=== PATIENT | male | born 1990 | race Two or more races ===

== ENCOUNTER 2024-10-04 07:27 | Emergency (ER) | payer OTHER ==
[~2024-10-04] VITALS: Ht 170.2 cm; Wt 71.2 kg
[2024-10-04 07:48] VITALS: BP 149/92; PULSE 92; RESP 18; TEMP 98.1; O2SAT 96
--- NOTE | 2024-10-04 08:11 | ED.PDOC ---
Eye-HPI HPI Comments 34 year old male presents to the ED for the c/c of a Burning Sensation in his Throat. Pt states that he has been experiencing a Burning Sensation in his throat w/ associated SOB for the past 2x days. Pt also notes that he has a foreign body sensation in his right heel. No trauma noted. Does not recall stepping on anything. No aggravating factors. Burning sensation is described as mild, rates the pain 1/10. Pt denies any pain, cough, or radiation at this point in time. Denies chest pain shortness of breath Denies inability to move neck, history of meningitis Denies difficulty swallowing nor persistent salivation Denies fevers chills night sweats Denies persistent cough, runny nose, congestion Denies loss of appetite, unintentional weight loss over the past 3 months Denies voice changes Denies history of asthma or seasonal allergies Chief Complaint: Sore Throat Time Seen by MD: 08:04 Primary Care Provider: MY Reviewed Notes: Nurses Notes, Medications, Allergies Allergies: Coded Allergies: Ibuprofen (Verified Allergy, Unknown, 10/04/24) Information Source: Patient Mode of Arrival: Ambulatory Timing: Days Duration: Since onset, Days Prehospital treatment: None Quality: Clear Lids: Normal Conjunctiva: Normal Cornea: Normal Pupils: Normal EOM: Normal Fundus: Normal Slit lamp exam: Normal Anterior chamber: Normal Mouth: Normal ENT Ear Exam: Normal Nose: Normal Sinuses: Normal Oropharynx: Normal Onset: Spontaneous Throat Exposed to: None History of: None Last Tetanus: Unknown Associated signs and symptoms: Sore Throat Past Medical History PAST MEDICAL HISTORY: Denies Surgical History: Denies all surgeries Family History Family History: Reviewed,noncontributory to illness, No family hx of Cancer, No family hx of DM, No family hx of Heart elicia, No family hx of HTN, No family hx ofKidney elicia, No family hx of Liver elicia, No family hx of Lung elicia, No family hx of Stroke Social History Smoker: Non-Smoker Alcohol: Denies ETOH Use Drugs: Denies Drug Use Lives In: Home Constitutional: denies: chills, diaphoresis, fatigue, fever, malaise, sweats, weakness, others EENTM: reports: others (throat burning); denies: blurred vision, double vision, ear bleeding, ear discharge, ear drainage, ear pain, ear ringing, eye pain, eye redness, hearing loss, mouth pain, mouth swelling, nasal discharge, nose bleeding, nose congestion, nose pain, photophobia, tearing, throat pain, throat swelling, voice changes Respiratory: reports: SOB at rest, shortness of breath; denies: cough, hemoptysis, orthopnea, SOB with excertion, stridor, wheezing, others Cardiovascular: denies: chest pain, dizzy spells, diaphoresis, Dyspnea on exertion, edema, irregular heart beat, left arm pain, lightheadedness, palpitations, PND, syncope, others Gastrointestinal: denies: abdomen distended, abdominal pain, blood streaked bowels, constipated, diarrhea, dysphagia, difficulty swallowing, hematemesis, melena, nausea, poor appetite, poor fluid intake, rectal bleeding, rectal pain, vomiting, others Genitourinary: denies: burning, dysuria, flank pain, frequency, hematuria, incontinence, penile discharge, penile sore, pain, testicle pain, testicle swelling, urgency, others Neurological: denies: dizziness, fainting, headache, left sided numbness, left sided weakness, numbness, paresthesia, pre-existing deficit, right sided numbness, right sided weakness, seizure, speech problems, tingling, tremors, weakness, others Musculoskeletal: denies: back pain, gout, joint pain, joint swelling, muscle pain, muscle stiffness, neck pain, others Integumetry: denies: bruises, change in color, change in hair/nails, dryness, laceration, lesions, lumps, rash, wounds, others Allergic/Immunocompromised: denies: Difficulty Healing, Frequent Infections, Hives, Itching, others Hematologic/Lymphatic: denies: anemia, blood clots, easy bleeding, easy bruising, swollen glands, others Endocrine: denies: excessive hunger, excessive sweating, excessive thirst, excessive urination, flushing, intolerance to cold, intolerance to heat, unexplained weight gain, unexplained weight loss, others Psychiatric: denies: anxiety, bipolar disorder, depression, hopeless, panic disorder, schizophrenia, sleepless, suicidal, others All Other Systems: Reviewed and Negative Physical Exam General Appearance: Normal, Obese HEENT: Head (Normocephalic atraumatic), Normal ENT Inspection, Pharynx Normal, TMs Normal, Other (Uvula Midline, MMM) Neck: Full Range of Motion, Non-Tender, Normal, Normal Inspection (no palpable masses) Respiratory: Chest Non-Tender, Lungs Clear, No Respiratory Distress Cardiovascular: No Edema, No JVD, Normal Peripheral Pulses Breast Exam: Deferred Gastrointestinal: Non Tender, No Pulsatile Mass, Soft Genitalia: Deferred Pelvic: Deferred Rectal: Deferred Extremities: No calf tenderness, Normal range of motion, Non-tender Musculoskeletal : Apperance: Normal Neurologic: Alert, No Motor Deficits, Normal Mood Cerebellar Function: Normal Reflexes: Normal Skin: Dry, Normal Color, Warm Lymphatic: No Adenopathy Was a procedure done? Was a procedure done?: No EENT DIFF Eye: Other Sore Throat: Epiglottitis, Pharyngitis, Viral Pharyngitis X-Ray, Labs, Meds, VS Vital Signs Date Time Temp Pulse Resp B/P (MAP) Pulse Ox O2 Delivery O2 Flow Rate FiO2 10/04/24 07:48 92 18 96 Room Air 10/04/24 07:48 98.1 92 18 149/92 (111) 96 98.1 10/04/24 07:35 98.1 92 18 149/92 (111) 96 98.1 Lab Test 10/04/24 08:40 10/04/24 08:13 Range/Units Group A Streptococcus Rapid Negative White Blood Count 5.6 4.4-10.8 10^3/uL Red Blood Count 5.20 4.5-5.90 10^6/uL Hemoglobin 15.6 13.5-17.5 g/dL Hematocrit 46.1 41.0-53.0 % Mean Corpuscular Volume 88.6 80.0-100.0 fL Mean Corpuscular Hemoglobin 29.9 28.0-32.0 pg Mean Corpuscular Hemoglobin Concent 33.8 32.0-36.0 g/dL Red Cell Distribution Width 13.0 11.8-14.3 % Platelet Count 309 140-450 10^3/uL Mean Platelet Volume 7.8 6.9-10.8 fL Neutrophils (%) (Auto) 54.9 37.0-80.0 % Lymphocytes (%) (Auto) 36.7 10.0-50.0 % Monocytes (%) (Auto) 7.3 0.0-12.0 % Eosinophils (%) (Auto) 0.8 0.0-7.0 % Basophils (%) (Auto) 0.3 0.0-2.0 % Neutrophils # (Auto) 3.1 1.6-8.6 10 ^3/uL Lymphocytes # (Auto) 2.1 0.4-5.4 10 ^3/uL Monocytes # (Auto) 0.4 0-1.3 10 ^3/uL Eosinophils # (Auto) 0 0-0.8 10 ^3/uL Basophils # (Auto) 0 0-0.2 10 ^3/uL Nucleated Red Blood Cells 0.0 % Sodium Level 141 136-145 mmol/L Potassium Level 4.4 3.5-5.1 mmol/L Chloride Level 106 98-107 mmol/L Carbon Dioxide Level 27 20-31 mmol/L Anion Gap 8 5-15 Blood Urea Nitrogen 13 9-23 mg/dL Creatinine 0.85 0.700-1.30 mg/dL Glomerular Filtration Rate Calc 115 >90 mL/min BUN/Creatinine Ratio 15.3 10.0-20.0 Serum Glucose 102 74-106 mg/dL Calcium Level 10.3 8.7-10.4 mg/dL X-Ray, Labs, Meds, VS Comment 34 year old male presents to the ED for the c/c of a Burning Sensation in his Throat. Patient arrives alert and oriented, ABC's intact, afebrile, vital signs stable, saturating well in room air Patient presents with a chief complaint of a sore throat. After review of systems and physical examination there are no no concerns or red flags for peritonsillar abscess, abscess formation, epiglottitis, retropharyngeal abscess formation or airway obstruction. No concerns for peritonsillar abscess as patient denies severe sore throat, muffled or hot potato voice, and difficulty handling secretions. No concerns for abscess formation as the soft palate is symmetrical and there is no displacement of the uvula and the uvula is also midline. No concerns for epiglottitis as patient denies severe sore throat, dysphagia, muffled voice, patient is not drooling nor is patient in tripod position. No signs of retropharyngeal abscess formation as patient has no fevers, stiff neck, drooling no stridor No signs of airway obstruction as patient denies sensation of foreign body vital signs stable on room air. Labs were ordered. CBC was ordered to exclude anemia, blood loss, or infection. BMP was ordered to exclude electrolyte abnormalities, renal failure, d ehydration, hyperglycemia Strep was ordered Labs in the ED showed reassuring Patient is stable for discharge at this time. External notes reviewed. Test results and diagnostic imaging interpreted. All diagnostic findings, discharge care, education and instructions provided Follow-up with PCP in 2 to 3 days Patient verbalized understanding and agreed to treatment plan Vital signs stable, afebrile, no acute distress noted Patient ambulatory with strong steady gait Advised to return precautions for any new or worsening symptoms, return to ER immediately for re-evaluation Patient is aware that the purpose of this visit was for an acute medical emergency requiring emergent stabilization. Chronic conditions, including malignancies have not been ruled out. Patient is instructed to follow up with PCP as directed and discharge instructions for continued care and workup. If unable to arrange follow-up, patient is to return to the emergency department for reassessment. Patient (parent or legal guardian if applicable) was given verbal and written discharge instructions and acknowledges understanding. Additional MDM Review of External, Non-ED records: External records reviewed. Discussion with independent historian (EMS, family) history obtained from the patient/parents (if applicable) at bedside Chronic conditions affecting care: None Social determinants of health affecting care: None Consideration of admission (observation or admission): I considered escalation of care to admission for this patient, however given the reassuring workup, the patient is safe for outpatient management. Time of 1ST Reevaluation: 08:35 Reevaluation 1ST: Unchanged Patient Education/Counseling: Diagnosis, Treatment Family Education/Counseling: No Family Present Departure 1 Departure Time of Disposition: 09:17 Impression: Primary Impression: Throat pain Disposition: 01 HOME / SELF CARE / HOMELESS Condition: Stable e-Prescriptions Cetirizine Hcl (Cetirizine Hcl) 5 Mg Tab 10 MG PO DAILY for 30 Days, #60 TAB 0 Refills Prov: LILIAN HAWKINS NP 10/04/24 Discharged With: Self Critical Care Note Critical Care Time?: No Stability Stability form required: No Heart Score Heart Score: Heart Score Response (Comments) Value History N/A 0 EKG N/A 0 Age N/A 0 Risk Factors N/A 0 Troponin N/A 0 Total 0 I personally scribed for LILIAN HAWKINS NP ([email or web address]) on 10/04/24 at 08:11. Electronically submitted by Tony Tovar ([email or web address]). LILIAN HAWKINS NP Oct 04, 2024 08:11
[2024-10-04 08:33] LABS: Basophils # (auto) 0 10 ^3/uL (0-0.2); Basophils % (auto) 0.3 % (0.0-2.0); Eosinophils # (auto) 0 10 ^3/uL (0-0.8); Eosinophils % (auto) 0.8 % (0.0-7.0); Hematocrit 46.1 % (41.0-53.0); Hemoglobin 15.6 g/dL (13.5-17.5); Lymphocytes # (auto) 2.1 10 ^3/uL (0.4-5.4); Lymphocytes % (auto) 36.7 % (10.0-50.0); Mean Corpuscular Hemoglobin 29.9 pg (28.0-32.0); Mean Corpuscular Hgb Conc. 33.8 g/dL (32.0-36.0); Mean Corpuscular Volume 88.6 fL (80.0-100.0); Monocytes # (auto) 0.4 10 ^3/uL (0-1.3); Monocytes % (auto) 7.3 % (0.0-12.0); Neutrophils # (auto) 3.1 10 ^3/uL (1.6-8.6); Neutrophils % (auto) 54.9 % (37.0-80.0); Platelet Count (auto) 309 10^3/uL (140-450); White Blood Cell 5.6 10^3/uL (4.4-10.8)
[2024-10-04 08:43] LABS: Chloride 106 mmol/L (98-107); Potassium 4.4 mmol/L (3.5-5.1); Sodium 141 mmol/L (136-145)
[2024-10-04 08:44] LABS: Anion Gap 8 (5-15); Carbon Dioxide 27 mmol/L (20-31)
[2024-10-04 08:45] LABS: Calcium 10.3 mg/dL (8.7-10.4)
[2024-10-04 08:50] LABS: BUN/Creatinine Ratio 15.3 (10.0-20.0); Blood Urea Nitrogen 13 mg/dL (9-23); Glucose 102 mg/dL (74-106)
[2024-10-04 08:54] LABS: Rapid Strep A Screen-Throat Negative
[2024-10-04] MEDS ORDERED: CETI5TAB6 PO (09:19)
== END 2024-10-04 09:29 | disposition home or self-care (01) ==
LOC: ER 07:27
DX: R07.0 Pain in throat (principal); Z88.6 Allergy status to analgesic agent
CPT/HCPCS: 36415; 80048; 85025; 87070; 87880

== ENCOUNTER 2024-11-14 10:44 | Emergency (ER) | payer OTHER ==
[~2024-11-14] VITALS: Ht 170.2 cm; Wt 70.2 kg
[~2024-11-14 10:44] MED LIST: CETI5TAB6 PO
--- NOTE | 2024-11-14 11:47 | ED.PDOC ---
HPI Comments 34y M who presents to the ED for chief complaint of palpitations. Pt states he was at [facility] 2x weeks prior for shortness of breath and discharged. Pt states since, he has continued to be short of breath but states today, he started to have palpitations and states earlier this AM, he had pain radiating to the L arm and extremity. Pt states the pain was like a jolt and states they last for a few seconds, occurring intermittently this AM and pt got concerned and went to [facility] urgent care and was referred to the ED for further evaluation. Pt in the ED, states these palpitations have occurred intermittently over the past 2 weeks, usually occur after he drinks liquids that are very sweet, but states he became concerned due to the increased nature of the pain and came for further evaluation. Pt states he did have 1x episode of palpitations in the past and s tates it was associated with a syncopal episode and states it was due to dehydration. Pt states he was referred to pipe buffer and had full work with associated Holter monitor and states work up came back negative. Pt states he otherwise has not seen a PCP or any provider since. Pt otherwise has noted stable vitals with heart rate of 92, BP 140/87, RR 16 and temp of 98.5F. Pt oth erwise denies any other symptoms at this time. Chief Complaint: Palpitations Time Seen by MD: 11:30 Primary Care Provider: MY Reviewed Notes: Medications, Allergies Allergies: Coded Allergies: Ibuprofen (Verified Allergy, Unknown, 10/04/24) Home Meds Active Scripts Cetirizine Hcl (Cetirizine Hcl) 5 Mg Tab, 10 MG PO DAILY for 30 Days, #60 TAB 0 Refills Prov:LILIAN HAWKINS [employer] 10/04/24 Information Source: Patient Mode of Arrival: Ambulatory Past Medical History PAST MEDICAL HISTORY: Denies Surgical History: Denies all surgeries Family History Family History: Reviewed,noncontributory to illness, No family hx of Cancer, No family hx of DM, No family hx of Heart elicia, No family hx of HTN, No family hx ofKidney elicia, No family hx of Liver elicia, No family hx of Lung elicia, No family hx of Stroke Social History Smoker: Non-Smoker Alcohol: Denies ETOH Use Drugs: Denies Drug Use Lives In: Home Constitutional: denies: chills, diaphoresis, fatigue, fever, malaise, sweats, weakness, others EENTM: denies: blurred vision, double vision, ear bleeding, ear discharge, ear drainage, ear pain, ear ringing, eye pain, eye redness, hearing loss, mouth pain, mouth swelling, nasal discharge, nose bleeding, nose congestion, nose pain, photophobia, tearing, throat pain, throat swelling, voice changes, others Respiratory: denies: cough, hemoptysis, orthopnea, SOB at rest, shortness of breath, SOB with excertion, stridor, wheezing, others Cardiovascular: reports: palpitations; denies: chest pain, dizzy spells, diaphoresis, Dyspnea on exertion, edema, irregular heart beat, left arm pain, lightheadedness, PND, syncope, others Gastrointestinal: denies: abdomen distended, abdominal pain, blood streaked bowels, constipated, diarrhea, dysphagia, difficulty swallowing, hematemesis, melena, nausea, poor appetite, poor fluid intake, rectal bleeding, rectal pain, vomiting, others Genitourinary: denies: burning, dysuria, flank pain, frequency, hematuria, incontinence, penile discharge, penile sore, pain, testicle pain, testicle swelling, urgency, others Neurological: denies: dizziness, fainting, headache, left sided numbness, left sided weakness, numbness, paresthesia, pre-existing deficit, right sided numbness, right sided weakness, seizure, speech problems, tingling, tremors, weakness, others Musculoskeletal: denies: back pain, gout, joint pain, joint swelling, muscle pain, muscle stiffness, neck pain, others Integumetry: denies: bruises, change in color, change in hair/nails, dryness, laceration, lesions, lumps, rash, wounds, others Allergic/Immunocompromised: denies: Difficulty Healing, Frequent Infections, Hives, Itching, others Hematologic/Lymphatic: denies: anemia, blood clots, easy bleeding, easy bruising, swollen glands, others Endocrine: denies: excessive hunger, excessive sweating, excessive thirst, excessive urination, flushing, intolerance to cold, intolerance to heat, unexplained weight gain, unexplained weight loss, others Psychiatric: denies: anxiety, bipolar disorder, depression, hopeless, panic disorder, schizophrenia, sleepless, suicidal, others All Other Systems: Reviewed and Negative Physical Exam General Appearance: No Apparent Distress HEENT: Other (Pupils and face symmetric. Moist mucous membranes.) Neck: Full Range of Motion, Normal Inspection Respiratory: Lungs Clear, No Accessory Muscle Use, No Respiratory Distress, Normal Breath Sounds Cardiovascular: No Edema, No JVD, Regular Rate/Rhythm Breast Exam: Deferred Gastrointestinal: Non Tender, Soft Genitalia: Deferred Pelvic: Deferred Rectal: Deferred Extremities: Normal inspection, Normal range of motion, Non-tender, No pedal edema Neurologic: Alert (Oriented x4), Normal Affect, Normal Mood, Other (Ambulatory) Cerebellar Function: NOT DONE Reflexes: NOT DONE Skin: Dry, Normal Color, Warm Lymphatic: NOT DONE EKG EKG : Comments Sinus rhythm, rate 87, normal intervals, normal axis, normal QRS, no ST/T change. Was a procedure done? Was a procedure done?: No CP Differential Dx Differential Diagnosis: A-fib, A-Flutter, Angina, Anxiety / Panic Attack, Electrolyte Disorder, Heart Failure, [place], PVC's Differential Diagnosis: HTN Essential Differential Diagnosis: Angina, Chest Wall Pain, Costochondritis, Esophageal reflux/spasm, Gastritis X-Ray, Labs, Meds, VS Vital Signs Date Time Temp Pulse Resp B/P (MAP) Pulse Ox O2 Delivery O2 Flow Rate FiO2 11/14/24 11:24 94 18 95 Room Air 11/14/24 11:24 94 18 130/88 (102) 95 11/14/24 11:14 87 11/14/24 11:05 98.5 92 16 140/87 (104) 97 98.5 Lab Test 11/14/24 12:37 11/14/24 11:32 11/14/24 11:16 Range/Units Troponin I High Sensitivity < 3 L < 3 L </=54 ng/L White Blood Count 7.7 4.4-10.8 10^3/uL Red Blood Count 5.14 4.5-5.90 10^6/uL Hemoglobin 15.6 13.5-17.5 g/dL Hematocrit 45.9 41.0-53.0 % Mean Corpuscular Volume 89.4 80.0-100.0 fL Mean Corpuscular Hemoglobin 30.4 28.0-32.0 pg Mean Corpuscular Hemoglobin Concent 34.0 32.0-36.0 g/dL Red Cell Distribution Width 12.7 11.8-14.3 % Platelet Count 334 140-450 10^3/uL Mean Platelet Volume 7.8 6.9-10.8 fL Neutrophils (%) (Auto) 72.0 37.0-80.0 % Lymphocytes (%) (Auto) 21.8 10.0-50.0 % Monocytes (%) (Auto) 5.7 0.0-12.0 % Eosinophils (%) (Auto) 0.2 0.0-7.0 % Basophils (%) (Auto) 0.3 0.0-2.0 % Neutrophils # (Auto) 5.6 1.6-8.6 10 ^3/uL Lymphocytes # (Auto) 1.7 0.4-5.4 10 ^3/uL Monocytes # (Auto) 0.4 0-1.3 10 ^3/uL Eosinophils # (Auto) 0 0-0.8 10 ^3/uL Basophils # (Auto) 0 0-0.2 10 ^3/uL Nucleated Red Blood Cells 0.1 % Sodium Level 140 136-145 mmol/L Potassium Level 3.9 3.5-5.1 mmol/L Chloride Level 104 98-107 mmol/L Carbon Dioxide Level 26 20-31 mmol/L Anion Gap 10 5-15 Blood Urea Nitrogen 13 9-23 mg/dL Creatinine 0.84 0.700-1.30 mg/dL Glomerular Filtration Rate Calc 116 >90 mL/min BUN/Creatinine Ratio 15.5 10.0-20.0 Serum Glucose 96 74-106 mg/dL Calcium Level 10.4 8.7-10.4 mg/dL B-Type Natriuretic Peptide 11.44 0-100 pg/mL Urine Color Light-yellow Yellow Urine Clarity Clear Clear Urine pH 7.5 5.0-9.0 Urine Specific [place] 1.019 1.001-1.035 Urine Protein Negative Negative Urine Ketones Negative Negative Urine Blood Negative Negative /uL Urine Nitrite Negative Negative Urine Bilirubin Negative Negative Urine Urobilinogen Normal Negative mg/dL Urine Leukocyte Esterase Negative Negative /uL Urine RBC 1 0 - 3 /hpf Urine Microscopic WBC 0-3 /HPF Urine Squamous Epithelial Cells None seen <5 /hpf Urine Bacteria None seen None Seen /hpf Urine Mucus Few None Seen Urine Glucose Normal Normal mg/dL Urine Opiates Screen Neg NEGATIVE Urine Fentanyl Screen Neg NEGATIVE Urine Barbiturates Screen Neg NEGATIVE Urine Phencyclidine Screen Neg NEGATIVE Urine Amphetamines Screen Neg NEGATIVE Urine Benzodiazepines Screen Neg NEGATIVE Urine Cocaine Screen Neg NEGATIVE Urine Cannabinoids Screen Neg NEGATIVE X-Ray, Labs, Meds, VS Comment 44-year-old male with no significant past medical history referred by urgent care for evaluation of palpitations, shortness of breath and left upper extremity pain intermittently for past several weeks no symptoms currently. Vitals unremarkable Exam unremarkable Rhythm strip independently interpreted by me: Sinus rhythm, rate 7, no ectopy. Chest x-ray unremarkable CBC, basic metabolic panel, BNP, serial troponins, UA and urine drug screen unremarkable for any abnormality of acute significance No acute treatment indicated in the ED Hospitalization was considered, however patient was asymptomatic in the ED, cardiac workup is unremarkable, and he does state that he had a cardiology evaluation 8 years ago including Holter monitoring, which was unremarkable. Patient does appear stable at this point to be discharged with close follow-up with his primary physician for referral back to Cardiology for re-evaluation. Alternatively, patient may follow-up with Dr. Frederick. Time of 1ST Reevaluation: 14:15 Reevaluation 1ST: Unchanged Patient Education/Counseling: Diagnosis, Treatment Family Education/Counseling: No Family Present SEPSIS Sepsis Screen Date sepsis recognized/suspect: Nov 14, 2024 Time Sepsis recognized/suspect: 1107 Recent Procedure: No On Antibiotic Therapy: No Respiratory Rate >20: No Heart Rate >90: Yes Temp<36 C (96.8 F) or >38.3 C: No SBP <90 or MAP <65 mmHG: No New Acute Mental Status Change: No Is the patient on CPAP, BIPAP,: No SEPSIS EXCLUSION NOTE: Sepsis Exclusion Note: Patient presents with SIRS criteria, but the SIRS response is attributed to [anxiety ], not a suspected infection. Sepsis bundle is not initiated at this time, due to this reason. Further management will focus on the treatment of the above condition (s). Physician Orders Electrocardigram (11/14/24 11:18) Troponin-I Hs (11/14/24 14:23) Vital Signs Date Time Temp Pulse Resp B/P (MAP) Pulse Ox O2 Delivery O2 Flow Rate FiO2 11/14/24 11:24 94 18 95 Room Air 11/14/24 11:24 94 18 130/88 (102) 95 11/14/24 11:14 87 11/14/24 11:05 98.5 92 16 140/87 (104) 97 98.5 Laboratory Tests Test 11/14/24 11:32 White Blood Count 7.7 10^3/uL (4.4-10.8) Departure 1 Departure Time of Disposition: 14:15 Impression: Primary Impression: Palpitations Disposition: HOME / SELF CARE / HOMELESS Condition: Stable Referrals: STEPHANIE FREDERICK Sr., MD Additional Instructions: Your blood tests, including screening test for heart attack and heart failure, were unremarkable. Your chest x-ray was normal. Your EKG was normal. There was no medication necessary at this time. Follow-up with your primary doctor in 1-2 days for referral to a pipe buffer for further evaluation of your palpitations. Alternatively, follow-up directly with Dr. Frederick. Return to ER for persistent or worsening symptoms. Discharged With: Self Critical Care Note Critical Care Time?: No Stability Stability form required: No Heart Score Heart Score: Heart Score Response (Comments) Value History Slightly Suspicious 0 EKG Normal 0 Age <45 0 Risk Factors No known risk factors 0 Troponin Normal limit 0 Total 0 I personally scribed for MAREN BRUNER MD ([email or web address]) on 11/14/24 at 11:47. Electronically submitted by Brayden Vu ([email or web address]). MARNE BRUNER MD Nov 14, 2024 11:47
[2024-11-14 11:48] LABS: Urine Protein, UAD Negative (Negative)
[2024-11-14 12:01] LABS: Hematocrit 45.9 % (41.0-53.0); Hemoglobin 15.6 g/dL (13.5-17.5); Mean Corpuscular Hemoglobin 30.4 pg (28.0-32.0); Mean Corpuscular Volume 89.4 fL (80.0-100.0); Nucleated Red Blood Cells % 0.1 %
[2024-11-14 12:07] LABS: Chloride 104 mmol/L (98-107); Potassium 3.9 mmol/L (3.5-5.1); Sodium 140 mmol/L (136-145)
[2024-11-14 12:08] LABS: Anion Gap 10 (5-15); Carbon Dioxide 26 mmol/L (20-31)
[2024-11-14 12:10] LABS: Calcium 10.4 mg/dL (8.7-10.4)
[2024-11-14 12:13] LABS: BUN/Creatinine Ratio 15.5 (10.0-20.0); Blood Urea Nitrogen 13 mg/dL (9-23); Glucose 96 mg/dL (74-106)
[2024-11-14 12:15] LABS: Amphetamine Screen, Urine Neg (NEGATIVE); Barbiturate Scree,Urine Neg (NEGATIVE); Benzodiazephine Screen, Urine Neg (NEGATIVE); Cannabinoid Screen, Urine Neg (NEGATIVE); Cocaine Screen, Urine Neg (NEGATIVE); Opiate Scree,Urine Neg (NEGATIVE); Phencyclidine Screen, Urine Neg (NEGATIVE)
[2024-11-14 14:02] VITALS: BP 131/93; PULSE 102; RESP 20; TEMP 99.5; O2SAT 94
--- NOTE | 2024-11-14 14:35 | DVH ---
CHEST RADIOGRAPH Indication: palpitations Technique: Single frontal view of the chest was obtained Comparison: None FINDINGS: Lines and Tubes: None Lungs: No focal consolidation. Pleura: No effusion. No pneumothorax. Cardiomediastinal contours: Unremarkable Bones: No acute osseous abnormality. IMPRESSION: 1. No acute cardiopulmonary disease.
--- NOTE | 2024-11-15 06:35 | ECG ---
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
== END 2024-11-14 14:35 | disposition home or self-care (01) ==
LOC: ER 10:44
DX: R00.2 Palpitations (principal); Z88.6 Allergy status to analgesic agent; Z79.899 Other long term (current) drug therapy
CPT/HCPCS: 36415; 71045; 80048; 80307; 81001; 83880; 84484; 85025; 93005

== ENCOUNTER 2025-03-31 09:49 | Emergency (ER) | payer OTHER ==
[~2025-03-31] VITALS: Ht 175.3 cm; Wt 86.0 kg
--- NOTE | 2025-03-31 10:00 | ECG ---
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
[2025-03-31 10:22] LABS: Hematocrit 46.7 % (41.0-53.0); Hemoglobin 15.6 g/dL (13.5-17.5); Mean Corpuscular Hemoglobin 29.9 pg (28.0-32.0); Mean Corpuscular Volume 89.5 fL (80.0-100.0); Nucleated Red Blood Cells % 0.1 %
[2025-03-31 10:35] LABS: Chloride 104 mmol/L (98-107); Potassium 4.8 mmol/L (3.5-5.1); Sodium 142 mmol/L (136-145)
[2025-03-31 10:36] LABS: Anion Gap 9 (5-15); Calcium 9.8 mg/dL (8.7-10.4); Carbon Dioxide 29 mmol/L (20-31)
--- NOTE | 2025-03-31 10:38 | ED.PDOC ---
HPI (NEURO) HPI Comments This is a 35 year-old male who presents to the ED via EMS for syncopal episode X1 hour ago. Patient reports some lightheadedness after the episode occured. Patient reports a Hx of syncope, with his last syncopal episode about 7-8 years ago. Patient was seen by a plastic machine operator in the past, no abnormalities identified, HR was normal, patient was told he was dehydrated. Patient has no further complaints at this time and denies symptoms of head trauma, headache, N/V, tremors, or fever. Chief Complaint: Syncope Time Seen by MD: 10:30 Primary Care Provider: MY Reviewed Notes: Nurses Notes, Electronic Organ Technician Notes, Medications, Allergies Information Source: Patient, Emergency Med Personnel Mode of Arrival: EMS Severity: Moderate Headache Severity: None Timing: Minutes Duration: Minutes Prehospital treatment: None Onset: At rest Circumstances: Spontaneous Symptoms: Syncope During: Awake After: Normal Mentation History of: None Modifying factors: Nothing Associated Signs and Symptoms: Other (lightheadedness) Past Medical History PAST MEDICAL HISTORY: Denies Surgical History: Denies all surgeries Family History Family History: Reviewed,noncontributory to illness, No family hx of Cancer, No family hx of DM, No family hx of Heart elicia, No family hx of HTN, No family hx ofKidney elicia, No family hx of Liver elicia, No family hx of Lung elicia, No family hx of Stroke Social History Smoker: Non-Smoker Alcohol: Denies ETOH Use Drugs: Denies Drug Use Lives In: Home Constitutional: denies: chills, diaphoresis, fatigue, fever, malaise, sweats, weakness, others EENTM: denies: blurred vision, double vision, ear bleeding, ear discharge, ear drainage, ear pain, ear ringing, eye pain, eye redness, hearing loss, mouth pain, mouth swelling, nasal discharge, nose bleeding, nose congestion, nose pain, photophobia, tearing, throat pain, throat swelling, voice changes, others Respiratory: denies: cough, hemoptysis, orthopnea, SOB at rest, shortness of breath, SOB with excertion, stridor, wheezing, others Cardiovascular: denies: chest pain, dizzy spells, diaphoresis, Dyspnea on exertion, edema, irregular heart beat, left arm pain, lightheadedness, palpitations, PND, syncope, others Gastrointestinal: denies: abdomen distended, abdominal pain, blood streaked bowels, constipated, diarrhea, dysphagia, difficulty swallowing, hematemesis, melena, nausea, poor appetite, poor fluid intake, rectal bleeding, rectal pain, vomiting, others Genitourinary: denies: burning, dysuria, flank pain, frequency, hematuria, incontinence, penile discharge, penile sore, pain, testicle pain, testicle swelling, urgency, others Neurological: reports: fainting, others (lightheaded); denies: dizziness, headache, left sided numbness, left sided weakness, numbness, paresthesia, pre- existing deficit, right sided numbness, right sided weakness, seizure, speech problems, tingling, tremors, weakness Musculoskeletal: denies: back pain, gout, joint pain, joint swelling, muscle pain, muscle stiffness, neck pain, others Integumetry: denies: bruises, change in color, change in hair/nails, dryness, laceration, lesions, lumps, rash, wounds, others Allergic/Immunocompromised: denies: Difficulty Healing, Frequent Infections, Hives, Itching, others Hematologic/Lymphatic: denies: anemia, blood clots, easy bleeding, easy br uising, swollen glands, others Endocrine: denies: excessive hunger, excessive sweating, excessive thirst, excessive urination, flushing, intolerance to cold, intolerance to heat, unexplained weight gain, unexplained weight loss, others Psychiatric: denies: anxiety, bipolar disorder, depression, hopeless, panic disorder, schizophrenia, sleepless, suicidal, others All Other Systems: Reviewed and Negative Physical Exam General Appearance: Moderate Distress HEENT: Normal ENT Inspection, Pharynx Normal, TMs Normal Neck: Full Range of Motion, Non-Tender, Normal, Normal Inspection Respiratory: Chest Non-Tender, Lungs Clear, No Accessory Muscle Use, No Respiratory Distress, Normal Breath Sounds Cardiovascular: No Edema, No JVD, No Murmur, No Gallop, Normal Peripheral Pulses, Regular Rate/Rhythm Breast Exam: Deferred Gastrointestinal: No Organomegaly, Non Tender, No Pulsatile Mass, Normal Bowel Sounds, Soft Genitalia: Deferred Pelvic: Deferred Rectal: Deferred Extremities: No calf tenderness, Normal capillary refill, Normal inspection, Normal range of motion, Non-tender, No pedal edema Musculoskeletal : Apperance: Normal Neurologic: Alert, safe and vault service mechanic II-XII nml as Tested, No Motor Deficits, Normal Affect, Normal Mood, No Sensory Deficits Cerebellar Function: Normal Reflexes: Normal Skin: Dry, Normal Color, Warm Peripheral Pulses: 3+ Radial (R), 3+ Radial (L) Lymphatic: No Adenopathy EKG EKG : Pulse Rate (adult): 86 [place]: Normal Cardiac Rhythm: NSR Block: None Hypertrophy: LAE ST: Normal Was a procedure done? Was a procedure done?: No Differential Diagnosis (SZ) Seizure: Psychogenic Seizure, Closed Head Injury, CVA/TIA General Weakness: Dehydration, Electrolyte imbalance, Hypoglycemia, Hypotension X-Ray, Labs, Meds, VS Vital Signs Date Time Temp Pulse Resp B/P (MAP) Pulse Ox O2 Delivery O2 Flow Rate FiO2 03/31/25 11:22 86 03/31/25 09:55 86 03/31/25 09:49 98.9 87 15 138/91 100 98.9 Lab Test 03/31/25 10:11 Range/Units White Blood Count 7.2 4.4-10.8 10^3/uL Red Blood Count 5.22 4.5-5.90 10^6/uL Hemoglobin 15.6 13.5-17.5 g/dL Hematocrit 46.7 41.0-53.0 % Mean Corpuscular Volume 89.5 80.0-100.0 fL Mean Corpuscular Hemoglobin 29.9 28.0-32.0 pg Mean Corpuscular Hemoglobin Concent 33.5 32.0-36.0 g/dL Red Cell Distribution Width 12.8 11.8-14.3 % Platelet Count 335 140-450 10^3/uL Mean Platelet Volume 7.5 6.9-10.8 fL Neutrophils (%) (Auto) 53.5 37.0-80.0 % Lymphocytes (%) (Auto) 39.6 10.0-50.0 % Monocytes (%) (Auto) 5.7 0.0-12.0 % Eosinophils (%) (Auto) 1.0 0.0-7.0 % Basophils (%) (Auto) 0.2 0.0-2.0 % Neutrophils # (Auto) 3.8 1.6-8.6 10 ^3/uL Lymphocytes # (Auto) 2.8 0.4-5.4 10 ^3/uL Monocytes # (Auto) 0.4 0-1.3 10 ^3/uL Eosinophils # (Auto) 0.1 0-0.8 10 ^3/uL Basophils # (Auto) 0 0-0.2 10 ^3/uL Nucleated Red Blood Cells 0.1 % Sodium Level 142 136-145 mmol/L Potassium Level 4.8 3.5-5.1 mmol/L Chloride Level 104 98-107 mmol/L Carbon Dioxide Level 29 20-31 mmol/L Anion Gap 9 5-15 Blood Urea Nitrogen 15 9-23 mg/dL Creatinine 0.87 0.700-1.30 mg/dL Glomerular Filtration Rate Calc 114 >90 mL/min BUN/Creatinine Ratio 17.2 10.0-20.0 Serum Glucose 101 74-106 mg/dL Calcium Level 9.8 8.7-10.4 mg/dL Troponin I High Sensitivity < 3 L </=54 ng/L Patient alert. Came in because of possible syncope. Vitals stable. Answering questions. Cardiac marker within normal limits. WBC within normal limits. Hemoglobin within normal limits. EKG reviewed does not show any acute changes. Neurological exam within normal limits. Explained to the patient. Was told to follow up with his primary care physician. Was told to come back if there is any problem. Time of 1ST Reevaluation: 11:00 Reevaluation 1ST: Improved Patient Education/Counseling: Diagnosis, Treatment Family Education/Counseling: No Family Present Departure 1 Departure Time of Disposition: 11:37 Impression: Primary Impression: Vasovagal syncope Additional Impression: Dehydration Disposition: 01 HOME / SELF CARE / HOMELESS Condition: Guarded Critical Care Note Critical Care Time?: No Stability Stability form required: No Heart Score Heart Score: Heart Score Response (Comments) Value History Slightly Suspicious 0 EKG Normal 0 Age <45 0 Risk Factors No known risk factors 0 Troponin Normal limit 0 Total 0 I personally scribed for DILIA HERNANDEZ MD ([email or web address]) on 03/31/25 at 10:38. Electronically submitted by Susan Monsivais ([email or web address]). I personally scribed for DILIA HERNANDEZ MD ([email or web address]) on 03/31/25 at 11:21. Electronically submitted by Amanda Lopez ([email or web address]). I personally scribed for DILIA HERNANDEZ MD ([email or web address]) on 03/31/25 at 11:22. Electronically submitted by Amanda Lopez ([facility]). DILIA HERNANDEZ MD Mar 31, 2025 10:38
[2025-03-31 10:41] LABS: BUN/Creatinine Ratio 17.2 (10.0-20.0); Blood Urea Nitrogen 15 mg/dL (9-23); Glucose 101 mg/dL (74-106)
[2025-03-31] MEDS: SODIUM CHLORIDE 0.9% 1,000 ML IV ONE (12:00)
[2025-03-31 12:26] VITALS: BP 143/83; PULSE 106; RESP 15; TEMP 97.8; O2SAT 98
== END 2025-03-31 12:57 | disposition home or self-care (01) ==
LOC: EDBD 09:49 → ER 09:49 → EDUNIT# 09:49 → ER 12:57
DX: R55 Syncope and collapse (principal); E86.0 Dehydration
CPT/HCPCS: 36415; 80048; 82947; 84484; 85025; 93005; 96360; 99284; J7030

== ENCOUNTER 2025-03-31 20:07 | Inpatient (IN) | payer OTHER ==
[~2025-03-31] VITALS: Ht 170.2 cm; Wt 69.9 kg
--- NOTE | 2025-03-31 21:31 | DVH ---
CHEST RADIOGRAPH Indication: SOB Technique: Single frontal view of the chest was obtained Comparison: XY CHEST XRAY 1 VIEW on DOS: 11/14/24 FINDINGS: Lines and Tubes: None Lungs: No focal consolidation. Pleura: No effusion. No pneumothorax. Cardiomediastinal contours: Unremarkable Bones: No acute osseous abnormality. IMPRESSION: No acute cardiopulmonary disease.
--- NOTE | 2025-03-31 21:47 | ED.PDOC ---
History of Present Illness HPI Comments 35-year-old male is brought in by ambulance from private residence for chief complaint of palpitations. Per EMS personnel report, patient was seen and evaluated at any, earlier, today, for earlier episode onset of palpitations with syncope. Patient was treated with fluids and was discharged after lab work at ED were benign. Upon returning home, patient reports on amputations returning, again. On scene, patient was pallor, with initial heart rhythm transitioning between sinus tach and aflutter. He denies any chest pain, shortness of breath, or further acute symptoms. No additional pertinent events or history endorsed by the patient. Chief Complaint: Palpitations Time Seen by MD: 20:30 Primary Care Provider: MY Reviewed Notes: Nurses Notes, Napper Tender Notes, Medications, Allergies Allergies: Coded Allergies: Ibuprofen (Verified Allergy, Unknown, 10/04/24) Home Meds Active Scripts Cetirizine Hcl (Cetirizine Hcl) 5 Mg Tab, 10 MG PO DAILY for 30 Days, #60 TAB 0 Refills Prov:SHRUTHILILIAN NP 10/04/24 Information Source: Patient, Emergency Med Personnel Mode of Arrival: Ambulatory Severity: Moderate Timing: Hours Duration: Minutes Prehospital treatment: 12 Lead EKG, Accucheck, Angiographer Past Medical History PAST MEDICAL HISTORY: Denies Surgical History: Denies all surgeries Family History Family History: Reviewed,noncontributory to illness, No family hx of Cancer, No family hx of DM, No family hx of Heart elicia, No family hx of HTN, No family hx ofKidney elicia, No family hx of Liver elicia, No family hx of Lung elicia, No family hx of Stroke Social History Smoker: Non-Smoker Alcohol: Denies ETOH Use Drugs: Denies Drug Use Lives In: Home All Other Systems: Reviewed and Negative (Comprehensive review of systems are negative unless otherwise stated in HPI) Physical Exam General Appearance: No Apparent Distress, Normal HEENT: Normal ENT Inspection, Pharynx Normal, TMs Normal Neck: Full Range of Motion, Non-Tender, Normal, Normal Inspection Respiratory: Chest Non-Tender, Lungs Clear, No Accessory Muscle Use, No Respiratory Distress, Normal Breath Sounds Cardiovascular: Irregular (rhythm ), No Edema, No JVD, No Murmur, No Gallop, Normal Peripheral Pulses Breast Exam: Deferred Gastrointestinal: No Organomegaly, Non Tender, No Pulsatile Mass, Normal Bowel Sounds, Soft Genitalia: Deferred Pelvic: Deferred Rectal: Deferred Extremities: No calf tenderness, Normal capillary refill, Normal inspection, Normal range of motion, Non-tender, No pedal edema Musculoskeletal : Apperance: Normal Neurologic: Alert, six sigma black trainer II-XII nml as Tested, No Motor Deficits, Normal Affect, Normal Mood, No Sensory Deficits Cerebellar Function: Normal Reflexes: Normal Skin: Dry, Normal Color, Warm Lymphatic: No Adenopathy Was a procedure done? Was a procedure done?: No EKG EKG #1: Pulse Rate (adult): 96 [place]: Normal Cardiac Rhythm: ST, PAC's Block: None Hypertrophy: None ST: Normal EKG #2: Pulse Rate (adult): 105 [place]: Normal Cardiac Rhythm: ST Block: None Hypertrophy: None ST: Normal Differential Dx Considerations may include: Arrhythmia, dehydration, electrolyte imbalance, [place], PE, hypertension, among others X-Ray, Labs, Meds, VS Vital Signs Date Time Temp Pulse Resp B/P (MAP) Pulse Ox O2 Delivery O2 Flow Rate FiO2 03/31/25 21:47 105 03/31/25 20:56 105 03/31/25 20:10 98.0 102 22 138/72 96 98.0 03/31/25 20:07 96 Lab Test 03/31/25 22:19 03/31/25 21:12 Range/Units Troponin I High Sensitivity Pending < 3 L </=54 ng/L White Blood Count 10.2 # 4.4-10.8 10^3/uL Red Blood Count 4.85 4.5-5.90 10^6/uL Hemoglobin 14.5 13.5-17.5 g/dL Hematocrit 43.0 41.0-53.0 % Mean Corpuscular Volume 88.7 80.0-100.0 fL Mean Corpuscular Hemoglobin 29.9 28.0-32.0 pg Mean Corpuscular Hemoglobin Concent 33.7 32.0-36.0 g/dL Red Cell Distribution Width 12.9 11.8-14.3 % Platelet Count 343 140-450 10^3/uL Mean Platelet Volume 7.9 6.9-10.8 fL Neutrophils (%) (Auto) 77.2 37.0-80.0 % Lymphocytes (%) (Auto) 17.1 10.0-50.0 % Monocytes (%) (Auto) 5.3 0.0-12.0 % Eosinophils (%) (Auto) 0.1 0.0-7.0 % Basophils (%) (Auto) 0.3 0.0-2.0 % Neutrophils # (Auto) 7.9 1.6-8.6 10 ^3/uL Lymphocytes # (Auto) 1.7 0.4-5.4 10 ^3/uL Monocytes # (Auto) 0.5 0-1.3 10 ^3/uL Eosinophils # (Auto) 0 0-0.8 10 ^3/uL Basophils # (Auto) 0 0-0.2 10 ^3/uL Nucleated Red Blood Cells 2.7 % Prothrombin Time 10.6 9.3-11.8 sec Prothrombin Time INR 1.00 0.9-1.15 Activated Partial Thromboplast Time 27.1 24.5-34.5 SEC Sodium Level 143 136-145 mmol/L Potassium Level 3.9 3.5-5.1 mmol/L Chloride Level 107 98-107 mmol/L Carbon Dioxide Level 25 20-31 mmol/L Anion Gap 11 5-15 Blood Urea Nitrogen 10 9-23 mg/dL Creatinine 0.85 0.700-1.30 mg/dL Glomerular Filtration Rate Calc 115 >90 mL/min BUN/Creatinine Ratio 11.8 10.0-20.0 Serum Glucose 101 74-106 mg/dL Calcium Level 9.5 8.7-10.4 mg/dL Total Bilirubin 0.5 0.2-1.0 mg/dL Aspartate Amino Transferase (AST) 16 13-40 U/L Alanine Aminotransferase (ALT) 19 7-40 U/L Alkaline Phosphatase 70 46-116 U/L Total Protein 7.6 5.7-8.2 g/dL Albumin 4.7 3.2-4.8 g/dL Thyroid Stimulating Hormone (TSH) 2.85 0.55-4.78 uIU/mL Thyroxine (T4) Pending [address] [address] Ph: [phone] DIAGNOSTIC IMAGING Diagnostic Imaging Report : [id number] Signed PATIENT: NICK ORTIZ JR ACCT: [id number] UNIT: [id number] : 1990 LOC: ER ROOM / BED: / AGE / SEX: 35 / M ADM STATUS: REG ER SERVICE 57 ORDERING PHYSICIAN: LISA LOPEZ MD PROCEDURE(s): CXR1 - CHEST XRAY 1 VIEW REASON: SOB ORDER NUMBER(s): [id number], ACCESSION NUMBER(s): [id number] CHEST RADIOGRAPH Indication: SOB Technique: Single frontal view of the chest was obtained Comparison: XY CHEST XRAY 1 VIEW on DOS: 11/14/24 FINDINGS: Lines and Tubes: None Lungs: No focal consolidation. Pleura: No effusion. No pneumothorax. Cardiomediastinal contours: Unremarkable Bones: No acute osseous abnormality. IMPRESSION: No acute cardiopulmonary disease. ATED BY: SHAYLA HAYNES DO DICTATED DATE/TIME: 03/31/252127 SIGNED BY: SHAYLA HAYNES DO SIGNED DATE/TIME: 03/31/252127 CC: Time of 1ST Reevaluation: 21:00 Reevaluation 1ST: Unchanged Patient Education/Counseling: Diagnosis, Treatment Family Education/Counseling: No Family Present SEPSIS Sepsis Screen Date sepsis recognized/suspect: Mar 31, 2025 Time Sepsis recognized/suspect: 2009 Recent Procedure: No On Antibiotic Therapy: No Respiratory Rate >20: No Heart Rate >90: Yes Temp<36 C (96.8 F) or >38.3 C: No SBP <90 or MAP <65 mmHG: No New Acute Mental Status Change: No Is the patient on CPAP, BIPAP,: No Physician Orders Electrocardigram (03/31/25 20:27) Electrocardigram (03/31/25 21:27) Electrocardigram (03/31/25 23:27) Troponin-I Hs (03/31/25 21:58) Troponin-I Hs (03/31/25 23:58) Chest Xray 1 View (03/31/25 20:58) Thyroxine (T4) (03/31/25 20:58) Drug Screen (03/31/25 20:58) Angiographer (03/31/25 ) Vital Signs Date Time Temp Pulse Resp B/P (MAP) Pulse Ox O2 Delivery O2 Flow Rate FiO2 03/31/25 21:47 105 03/31/25 20:56 105 03/31/25 20:10 98.0 102 22 138/72 96 98.0 03/31/25 20:07 96 Laboratory Tests Test 03/31/25 21:12 White Blood Count 10.2 10^3/uL (4.4-10.8) # Departure 1 Departure Time of Disposition: 22:30 Impression: Primary Impression: Palpitations Additional Impressions: Paroxysmal atrial fibrillation Syncopal episodes Disposition: ADMITTED INPATIENT Admit to: Tele Condition: Guarded Comments 35-year-old male who had a syncopal episode this morning now with palpitations. Per EMS they did note that he was in atrial fibrillation on the cardiac catheterization technologist and EKG. He has converted to normal sinus rhythm now. With the syncope and his symptoms the plan will be to admit the patient for further cardiac workup Critical Care Note Critical Care Time?: No Stability Stability form required: No Heart Score Heart Score: Heart Score Response (Comments) Value History N/A 0 EKG N/A 0 Age N/A 0 Risk Factors N/A 0 Troponin N/A 0 Total 0 I personally scribed for LISA LOPEZ MD ([email or web address]) on 03/31/25 at 21:47. Electronically submitted by Ryder Campuzano ([email or web address]). LISA LOPEZ MD Mar 31, 2025 21:47
[2025-03-31 21:48] LABS: Hematocrit 43.0 % (41.0-53.0); Hemoglobin 14.5 g/dL (13.5-17.5); Mean Corpuscular Hemoglobin 29.9 pg (28.0-32.0); Mean Corpuscular Volume 88.7 fL (80.0-100.0); Nucleated Red Blood Cells % 2.7 %
[2025-03-31 21:59] LABS: Alanine Aminotransferase 19 U/L (7-40); Albumin 4.7 g/dL (3.2-4.8); Alkaline Phosphatase 70 U/L (46-116); Anion Gap 11 (5-15); BUN/Creatinine Ratio 11.8 (10.0-20.0); Blood Urea Nitrogen 10 mg/dL (9-23); Calcium 9.5 mg/dL (8.7-10.4); Carbon Dioxide 25 mmol/L (20-31); Glucose 101 mg/dL (74-106); Potassium 3.9 mmol/L (3.5-5.1); Sodium 143 mmol/L (136-145); Total Protein 7.6 g/dL (5.7-8.2)
[2025-03-31 22:00] LABS: Bilirubin, Total 0.5 mg/dL (0.2-1.0); Chloride 107 mmol/L (98-107)
[2025-03-31 22:02] LABS: INR 1.0 (0.9-1.15); Partial Thromboplastin Time 27.1 SEC (24.5-34.5); Prothrombin Time 10.6 sec (9.3-11.8)
[2025-03-31 23:07] LABS: Amphetamine Screen, Urine Neg (NEGATIVE); Barbiturate Scree,Urine Neg (NEGATIVE); Benzodiazephine Screen, Urine Neg (NEGATIVE); Cannabinoid Screen, Urine Neg (NEGATIVE); Cocaine Screen, Urine Neg (NEGATIVE); Opiate Scree,Urine Neg (NEGATIVE); Phencyclidine Screen, Urine Neg (NEGATIVE)
--- NOTE | 2025-03-31 23:55 | DVHHPRES ---
History of Present Illness Resident Creating Document: THEO MERCEDES RESIDENT History of Present Illness 35-year-old male presented to the ER with a chief complaint of palpitations for the past 2 days and the syncopal episode earlier this morning. Patient was brought to the ER by EMS earlier this morning for syncopal episode which she experienced at a restaurant. Patient was discharged any comes back again for persistent palpitations. He reports chest palpitations, skipped beats for the past 2 days. Patient has experienced this in the past when he was at [place] and was told that he was dehydrated. This morning he was eating breakfast at a restaurant when he felt dizzy and lightheaded and lost consciousness for about a minute or 2, denies hitting his head or experiencing seizure-like activity, did not lose his urine or bowel. Patient denies, chest pain, cough, shortness of breaths, abdominal or urinary symptoms. On my examination, patient is experiencing sinus tachycardia Past medical conditions/surgical conditions: None Home medications: None PCP: Unknown with the patient Social history: Denies smoking/drinking/drug use. Lives locally Patient seen and examined. Review of Systems Cardiovascular: Palpitations Allergies: Coded Allergies: Ibuprofen (Verified Allergy, Unknown, 10/04/24) Exam Vital Signs Vital Signs Date Time Temp Pulse Resp B/P (MAP) Pulse Ox O2 Delivery O2 Flow Rate FiO2 03/31/25 23:05 104 03/31/25 22:34 99.0 18 145/91 (109) 96 99.0 General Appearance: Alert, Oriented X3, Cooperative, No acute distress HEENT: Atraumatic Respiratory: Clear to auscultation, Normal air movement Cardiovascular: Regular rate, Normal S1, Normal S2 Abdominal: Normal bowel sounds, Soft, No tenderness Extremities: No tenderness/swelling Skin: No rashes Neuro: Normal gait, Normal speech, Strength at 5/5 X4 ext Labs/Xrays Labs Test 03/31/25 22:40 03/31/25 22:19 03/31/25 21:12 Range/Units Urine Opiates Screen Neg NEGATIVE Urine Fentanyl Screen Neg NEGATIVE Urine Barbiturates Screen Neg NEGATIVE Urine Phencyclidine Screen Neg NEGATIVE Urine Amphetamines Screen Neg NEGATIVE Urine Benzodiazepines Screen Neg NEGATIVE Urine Cocaine Screen Neg NEGATIVE Urine Cannabinoids Screen Neg NEGATIVE Troponin I High Sensitivity < 3 L </=54 ng/L White Blood Count 10.2 # 4.4-10.8 10^3/uL Red Blood Count 4.85 4.5-5.90 10^6/uL Hemoglobin 14.5 13.5-17.5 g/dL Hematocrit 43.0 41.0-53.0 % Mean Corpuscular Volume 88.7 80.0-100.0 fL Mean Corpuscular Hemoglobin 29.9 28.0-32.0 pg Mean Corpuscular Hemoglobin Concent 33.7 32.0-36.0 g/dL Red Cell Distribution Width 12.9 11.8-14.3 % Platelet Count 343 140-450 10^3/uL Mean Platelet Volume 7.9 6.9-10.8 fL Neutrophils (%) (Auto) 77.2 37.0-80.0 % Lymphocytes (%) (Auto) 17.1 10.0-50.0 % Monocytes (%) (Auto) 5.3 0.0-12.0 % Eosinophils (%) (Auto) 0.1 0.0-7.0 % Basophils (%) (Auto) 0.3 0.0-2.0 % Neutrophils # (Auto) 7.9 1.6-8.6 10 ^3/uL Lymphocytes # (Auto) 1.7 0.4-5.4 10 ^3/uL Monocytes # (Auto) 0.5 0-1.3 10 ^3/uL Eosinophils # (Auto) 0 0-0.8 10 ^3/uL Basophils # (Auto) 0 0-0.2 10 ^3/uL Nucleated Red Blood Cells 2.7 % Prothrombin Time 10.6 9.3-11.8 sec Prothrombin Time INR 1.00 0.9-1.15 Activated Partial Thromboplast Time 27.1 24.5-34.5 SEC Sodium Level 143 136-145 mmol/L Potassium Level 3.9 3.5-5.1 mmol/L Chloride Level 107 98-107 mmol/L Carbon Dioxide Level 25 20-31 mmol/L Anion Gap 11 5-15 Blood Urea Nitrogen 10 9-23 mg/dL Creatinine 0.85 0.700-1.30 mg/dL Glomerular Filtration Rate Calc 115 >90 mL/min BUN/Creatinine Ratio 11.8 10.0-20.0 Serum Glucose 101 74-106 mg/dL Calcium Level 9.5 8.7-10.4 mg/dL Total Bilirubin 0.5 0.2-1.0 mg/dL Aspartate Amino Transferase (AST) 16 13-40 U/L Alanine Aminotransferase (ALT) 19 7-40 U/L Alkaline Phosphatase 70 46-116 U/L Total Protein 7.6 5.7-8.2 g/dL Albumin 4.7 3.2-4.8 g/dL Thyroid Stimulating Hormone (TSH) 2.85 0.55-4.78 uIU/mL SEPSIS Sepsis Screen Date sepsis recognized/suspect: Mar 31, 2025 Time Sepsis recognized/suspect: 2233 Recent Procedure: No On Antibiotic Therapy: No Respiratory Rate >20: No Heart Rate >90: Yes Temp<36 C (96.8 F) or >38.3 C: No SBP <90 or MAP <65 mmHG: No New Acute Mental Status Change: No Is the patient on CPAP, BIPAP,: No Physician Orders Electrocardigram (03/31/25 20:27) Electrocardigram (03/31/25 21:27) Electrocardigram (03/31/25 23:27) Chest Xray 1 View (03/31/25 20:58) Thyroxine (T4) (03/31/25 20:58) Employment Legal Assistant (03/31/25 ) Admit (03/31/25 23:54) Vital Signs Date Time Temp Pulse Resp B/P (MAP) Pulse Ox O2 Delivery O2 Flow Rate FiO2 03/31/25 23:05 104 03/31/25 22:35 115 03/31/25 22:34 99.0 115 18 145/91 (109) 96 99.0 03/31/25 21:47 105 03/31/25 20:56 105 03/31/25 20:10 98.0 102 22 138/72 96 98.0 03/31/25 20:07 96 Laboratory Tests Test 03/31/25 21:12 White Blood Count 10.2 10^3/uL (4.4-10.8) # Medications Medications Dose Ordered Sig/Abbi Route Start Time Stop Time Status Last Admin Dose Admin Aspirin 162 mg ONCE ONCE PO 03/31/25 21:00 03/31/25 21:01 DC 03/31/25 22:31 162 MG Assessment/Plan Assessment/Plan Syncopal episode rule out cardiogenic causes Palpitations Sinus tachycardia Plan: Patient will be admitted to telemetry unit CT head, carotid duplex, orthostatic vitals, telemetry monitoring Chest x-ray unremarkable, troponins unremarkable, BNP pending Cardiology consulted Monitor electrolytes, magnesium pending Keep K greater than 4, Mag greater than 2 COVID influenza pending Plan discussed with the patient in which all questions have been answered Goals of care discussed for more than 30 minute, full code status Case discussed with Dr. Gonzalez Plan discussed with: Patient My Orders Orders - THEO MERCEDES Procedure Category Date Status Time Admit ADMIT 03/31/25 Verified 23:54 Date of Service: Mar 31, 2025 Billing Provider: CELSO GONZALEZ MD Common Visit Codes: [id number] INP/OBS CARE (HIGH) THEO MERCEDES Mar 31, 2025 23:55
[2025-04-01] VITALS (9 sets, daily range): BP systolic 124–137; BP diastolic 80–95; PULSE 82–93; RESP 16–20; TEMP 98–99; O2SAT 96–100
[2025-04-01] MEDS: SODIUM CHLORIDE 0.9% 1,000 ML IV ONE ×2 (00:15→13:23)
[2025-04-01] MEDS ORDERED: HYDROcodone-ACET 5/325MG TAB PO PRN (00:15)
[2025-04-01 00:31] LABS: Urine Protein, UAD Negative (Negative)
[2025-04-01 01:25] LABS: COVID19 ANTIGEN SOFIA FIA NEGATIVE (NEGATIVE)
--- NOTE | 2025-04-01 03:43 | ECG ---
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
[2025-04-01 05:14] LABS: Hematocrit 39.6 % (41.0-53.0); Hemoglobin 13.5 g/dL (13.5-17.5); Mean Corpuscular Hemoglobin 30.3 pg (28.0-32.0); Mean Corpuscular Volume 88.7 fL (80.0-100.0); Nucleated Red Blood Cells % 0.0 %
[2025-04-01 05:24] LABS: Potassium 3.8 mmol/L (3.5-5.1); Sodium 143 mmol/L (136-145)
[2025-04-01 05:25] LABS: Anion Gap 9 (5-15); Carbon Dioxide 27 mmol/L (20-31); INR 1.03 (0.9-1.15); Partial Thromboplastin Time 28.1 SEC (24.5-34.5); Prothrombin Time 10.9 sec (9.3-11.8)
[2025-04-01 05:26] LABS: Calcium 9.4 mg/dL (8.7-10.4)
[2025-04-01 05:30] LABS: Glucose 99 mg/dL (74-106)
[2025-04-01 05:31] LABS: BUN/Creatinine Ratio 13.9 (10.0-20.0); Blood Urea Nitrogen 11 mg/dL (9-23); Magnesium 2.5 mg/dL (1.6-2.6)
[2025-04-01 05:32] LABS: HDL Cholesterol 51 mg/dL (40-59)
[2025-04-01 05:37] LABS: Chloride 107 mmol/L (98-107); Cholesterol 227 mg/dL (< 200); Triglycerides 180 mg/dL (< 150)
--- NOTE | 2025-04-01 06:39 | DVH ---
EXAM: CT HEAD WITHOUT CONTRAST INDICATION: Syncope. TECHNIQUE: CT of the head without intravenous contrast. Coronal and sagittal reformatted images are submitted. Radiation Dose : 1. Head: CT Dose: CTDI volume is 61.0 mGy. Dose-length product is 976.3 mGy*cm The dose indicators for CT are the volume Computed Tomography (CT) Dose Index (CTDIvol) and the Dose Length Product (DLP), and are measured in units of mGy and mGy-cm, respectively. These indicators are not patient dose, but values generated from the CT scanner acquisition factors. The report includes radiation exposure data for exposures received during this examination. All CT scans at this medical facility are performed using dose modulation techniques as appropriate to a performed exam including the following: Automated exposure control was utilized; adjustment of the MA and/or KV according to patient size; and use of iterative reconstruction technique. COMPARISON: None FINDINGS: There is no evidence of acute intracranial hemorrhage, extra-axial collection, mass effect, midline shift, herniation or hydrocephalus. The ventricles, sulci and cisterns are age appropriate. The driver-white differentiation is intact. The visualized paranasal sinuses and mastoid air cells are clear. No depressed calvarial fracture. The surrounding soft tissues are unremarkable. IMPRESSION: 1. No evidence of acute intracranial abnormality.
--- NOTE | 2025-04-01 07:24 | ECG ---
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
--- NOTE | 2025-04-01 07:30 | ECG ---
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
--- NOTE | 2025-04-01 08:49 | DVH ---
CLINICAL HISTORY: syncope TECHNIQUE: Gordon-scale, Color and Duplex Doppler imaging of the bilateral carotid systems was performed. COMPARISON: None Findings: Right Carotid system: There is no plaque present in the right carotid system. Left Carotid system: There is no plaque present in the left carotid system. The following flow velocities were obtained (cm/sec). Right Carotid System: ICA PSV: 86 cm/sec ICA PDV: 41 cm/sec ICA/CCA Ratio: 0.9 Left Carotid System: ICA PSV: 96 cm/sec ICA PDV: 39 cm/sec ICA/CCA Ratio: 0.7 The right and left common carotid and external carotid arteries are patent. There is antegrade flow in both vertebral arteries and external carotid arteries. IMPRESSION: NORMAL RIGHT CAROTID SYSTEM. NORMAL LEFT CAROTID SYSTEM. Estimation of carotid stenosis is based on velocity parameters that correlate the residual internal carotid diameter with that of the more distal vessel in accordance with the [place] Symptomatic Carotid Endarterectomy Trial (NASCET).
--- NOTE | 2025-04-01 11:15 | DVHINCON2 ---
Date Seen: Apr 01, 2025 Referring Physician MD Ashu Reason for Consultation Palpitations and syncope History of Present Illness This is a 35-year-old man who presented to the emergency room via EMS with a chief complaint of palpitations. Information obtained from patient and mother at bedside. The patient reports a sudden onset of palpitations on Tuesday night lasting for approximately 1 hour. The next day on Tuesday morning he was sitting down about to have breakfast with his mother when he felt dizzy and experienced a subsequent syncopal event associated with a cool clammy sweat lasting approximately 1.5 minutes for which EMS arrived without abnormal findings on vital signs or blood glucose check. He was transported to the emergency room at this facility, treated with IV fluids, and sent home with a diagnosis of vasovagal syncope and dehydration. Later on during the day the patient experienced palpitations for which he presented via EMS for further evaluation. The patient reports a similar event of syncope approximately 6-7 years ago. At that time, he was diagnosed with dehydration and referred to a land surveying manager undergoing an event monitor for one week without abnormal findings. The patient also reports episodes of palpitations approximately five months ago for which he saw an unknown land surveying manager undergoing a 12 lead electrocardiogram without further cardiac workup. The patient admits to poor water intake. States he usually drinks caffeinated soda x 2 L/day. Mother at beside is concerned as the patient's brother was diagnosed with supraventricular tachycardia undergoing a cardiac ablation. Denies any past medical history. Past Medical History Past medical history reviewed. No other significant than mentioned above. Past Surgical History Denies any past surgical history. Family History: FH: cancer Grandfather Family History Brother with SVT undergoing cardiac ablation. Social History Denies the use of illicit drugs, alcohol, or tobacco use. Allergies: Coded Allergies: Ibuprofen (Verified Allergy, Unknown, 10/04/24) Home Meds Active Scripts Cetirizine Hcl (Cetirizine Hcl) 5 Mg Tab, 10 MG PO DAILY for 30 Days, #60 TAB 0 Refills Prov:LILIAN HAWKINS NP 10/04/24 Home Meds Denies any home medications. Current Medications Current Medications Medications (Trade) Dose Ordered Sig/Abbi Route PRN Reason Start Time Stop Time Status Last Admin Acetaminophen (Tylenol Tablet Or Capsule) 500 mg Q4HPRN PRN PO MILD PAIN (1-3 PAIN SCALE) 04/01/25 00:15 Acetaminophen/ Hydrocodone Bitart ([place] 5/325MG Tab) 1 tab Q4HPRN PRN PO MODERATE PAIN (4-6 PAIN SCALE) 04/01/25 00:15 Review of Systems Constitutional: No symptom reported Ears, Nose, & Throat: No symptom reported Eyes: No symptom reported Neurological: Syncope Pulmonary/Respiratory: No symptom reported Cardiovascular: Palpitations Gastrointestinal: No symptom reported Genitourinary: No symptom reported Musculoskeletal: No symptom reported Skin: No symptom reported Psychiatric: No symptom reported Endocrine: No symptom reported Hemotologic/Lymphatic: No symptom reported Vital Signs Vital Signs Date Time Temp Pulse Resp B/P (MAP) Pulse Ox O2 Delivery O2 Flow Rate FiO2 04/01/25 08:44 98.0 93 16 124/89 (101) 96 98.0 04/01/25 08:00 Room Air* 0 21 Physical Exam General Appearance: Cooperative. Well developed. Well nourished. In no acute distress Head Exam: Normal inspection Neck Exam: Normal inspection. Non-tender. Normal alignment Pulmonary/Respiratory: Chest non-tender. Clear bilateral breath sounds Cardiovascular/Chest: Regular rate and rhythm. S1, S2. Sinus rhythm. No murmurs. No JVD. Peripheral Pulses: 2+ Radial (R). 2+ Radial (L). 2+ Pedal (R). 2+ Pedal (L) Abdominal Exam: Normal bowel sounds Ankle Exam: Negative ankle edema Lower extremities: Negative lower extremity edema Neuro/Mental Status: A&O x4. Coherent Thoughts/Psych: Normal thought pattern. Appropriate mood and affect. Good judgement and insight Appearance: In no acute distress Skin Exam: Normal inspection. Normal color. Warm. Dry Labs/Diagnostic Data Labs Test 04/01/25 04:17 04/01/25 00:35 03/31/25 22:40 03/31/25 22:19 Range/Units White Blood Count 8.3 4.4-10.8 10^3/uL Red Blood Count 4.47 L 4.5-5.90 10^6/uL Hemoglobin 13.5 13.5-17.5 g/dL Hematocrit 39.6 L 41.0-53.0 % Mean Corpuscular Volume 88.7 80.0-100.0 fL Mean Corpuscular Hemoglobin 30.3 28.0-32.0 pg Mean Corpuscular Hemoglobin Concent 34.2 32.0-36.0 g/dL Red Cell Distribution Width 13.1 11.8-14.3 % Platelet Count 329 140-450 10^3/uL Mean Platelet Volume 7.9 6.9-10.8 fL Neutrophils (%) (Auto) 64.9 37.0-80.0 % Lymphocytes (%) (Auto) 27.5 10.0-50.0 % Monocytes (%) (Auto) 7.2 0.0-12.0 % Eosinophils (%) (Auto) 0.2 0.0-7.0 % Basophils (%) (Auto) 0.2 0.0-2.0 % Neutrophils # (Auto) 5.4 1.6-8.6 10 ^3/uL Lymphocytes # (Auto) 2.3 0.4-5.4 10 ^3/uL Monocytes # (Auto) 0.6 0-1.3 10 ^3/uL Eosinophils # (Auto) 0 0-0.8 10 ^3/uL Basophils # (Auto) 0 0-0.2 10 ^3/uL Nucleated Red Blood Cells 0.0 % Prothrombin Time 10.9 9.3-11.8 sec Prothrombin Time INR 1.03 0.9-1.15 Activated Partial Thromboplast Time 28.1 24.5-34.5 SEC Sodium Level 143 136-145 mmol/L Potassium Level 3.8 3.5-5.1 mmol/L Chloride Level 107 98-107 mmol/L Carbon Dioxide Level 27 20-31 mmol/L Anion Gap 9 5-15 Blood Urea Nitrogen 11 9-23 mg/dL Creatinine 0.79 0.700-1.30 mg/dL Glomerular Filtration Rate Calc 117 >90 mL/min BUN/Creatinine Ratio 13.9 10.0-20.0 Serum Glucose 99 74-106 mg/dL Calcium Level 9.4 8.7-10.4 mg/dL Magnesium Level 2.5 1.6-2.6 mg/dL Triglycerides Level 180 H < 150 mg/dL Cholesterol Level 227 H < 200 mg/dL LDL Cholesterol 142 H < 100 mg/dL HDL Cholesterol 51 40-59 mg/dL Influenza Type A Antigen Negative Negative Influenza Type B Antigen Negative Negative SARS-CoV-2 Antigen (Rapid) Negative NEGATIVE Urine Color Light-yellow Yellow Urine Clarity Clear Clear Urine pH 5.5 5.0-9.0 Urine Specific [place] 1.016 1.001-1.035 Urine Protein Negative Negative Urine Ketones Negative Negative Urine Blood Negative Negative /uL Urine Nitrite Negative Negative Urine Bilirubin Negative Negative Urine Urobilinogen Normal Negative mg/dL Urine Leukocyte Esterase Negative Negative /uL Urine RBC 1 0 - 3 /hpf Urine Microscopic WBC 5 H 0-3 /HPF Urine Squamous Epithelial Cells None seen <5 /hpf Urine Bacteria None seen None Seen /hpf Urine Mucus Few None Seen Urine Glucose Normal Normal mg/dL Urine Opiates Screen Neg NEGATIVE Urine Fentanyl Screen Neg NEGATIVE Urine Barbiturates Screen Neg NEGATIVE Urine Phencyclidine Screen Neg NEGATIVE Urine Amphetamines Screen Neg NEGATIVE Urine Benzodiazepines Screen Neg NEGATIVE Urine Cocaine Screen Neg NEGATIVE Urine Cannabinoids Screen Neg NEGATIVE Troponin I High Sensitivity < 3 L </=54 ng/L Test 03/31/25 21:12 Range/Units Hemoglobin A1c 5.6 <5.7 % A1C Total Bilirubin 0.5 0.2-1.0 mg/dL Aspartate Amino Transferase (AST) 16 13-40 U/L Alanine Aminotransferase (ALT) 19 7-40 U/L Alkaline Phosphatase 70 46-116 U/L B-Type Natriuretic Peptide 7.31 0-100 pg/mL Total Protein 7.6 5.7-8.2 g/dL Albumin 4.7 3.2-4.8 g/dL Vitamin D 25-Hydroxy 14.0 L 30.0-100 ng/mL Thyroid Stimulating Hormone (TSH) 2.85 0.55-4.78 uIU/mL Assessment Palpitations rule out cardiac arrhythmias Rule out structural heart disease Prediabetes, newly diagnosed Dyslipidemia, newly diagnosed Vitamin-D deficiency * Transthoracic echocardiogram, pending * 12 lead electrocardiograms x4 revealed a sinus rhythm without ST-T wave segment changes * Serial troponin levels are negative. BNP 7 Plan/Recommendation (Dr. Alarcon) We will continue further cardiac evaluation with a transthoracic echocardiogram to rule out structural heart disease. Obtain a set of orthostatic vital signs. Administer IVF bolus. During auscultation the patient was experiencing premature contractions, initiate magnesium replacement p.o. He was strongly advised to avoid caffeine, to hydrate routinely as well as diet and exercise given dyslipidemia. He can benefit from an outpatient event monitor for at least two weeks to rule tachyarrhythmias and assess burden of PACs/PVCs. In the setting of an unremarkable echocardiogram and if no cardiac arrhythmias identified, there is no further cardiac work-up indicated at this time. Consider Vitamin-D replenishment. Monitor ECG changes and notify accordingly. Thank you for allowing us to participate in this patient's care. Please call if you have any questions or concerns. This medical document was created using an electronic medical record system with voice recognition software and computerized dictation system. Although this document has been carefully reviewed, there might still be some phonetic and typographical errors. Occasional wrong-word or ``sound-alike substitutions may have occurred due to the inherent limitations of voice recognition software. These areas are purely typographical due to imperfections of the software programs and do not reflect any compromise in the patient's medical care. Please read the chart carefully and recognize, using context, where these substitutions have occurred. Plan discussed with: Patient, Other NYHA Physical activity limitations: NA Date of Service: Apr 01, 2025 Billing Provider: NATI SOW Cardiology Common Codes: [id number] INP/OBS CARE (High) NATI SOW Apr 01, 2025 11:15
[2025-04-01] MEDS: MAGNESIUM OXIDE 400 MG TAB PO ONE (13:16)
[2025-04-01] MEDS: ERGOCALCIFEROL 50,000 UNIT(1.25MG) CAP PO SCH ×2 (13:20→15:15)
--- NOTE | 2025-04-01 15:08 | DVHPNRES ---
Progress Note Date Seen: Apr 01, 2025 Resident Creating Document: RAUL JOHNS RESIDENT Medical Necessity Reason Pt with a Central, PICC or Fol: No Subjective Review of Systems 35 year old male with past medical history of dyslipidemia presented with complaints of syncopal episode earlier in the morning. Patient reports he was eating breakfast with his mother Tuesday when the syncopal episode happened. patient reports that he has been having the palpitation since Tuesday. He came to the ED, treated with IV fluids and sent home. Later on during the day patient came back to the ED because of increased symptoms. He says that he has had a previous episode of syncope 6 years back. Six months back the patient experienced palpitations for the 1st time. He was seen at [facility] by hat steamer who diagnosed him with dehydration Advised to drink more fluids. Patient admits to drinking only 1 small cup of water a day. He has multiple family members with heart diseases. PMHx: dyslipidemia PSHx: none Family history: multiple family members with heart disease, supraventricular tachycardia in brother Social history: denies smoking, alcohol or drug use Home medication: no home medications Allergic history: ibuprofen CONSTITUTIONAL: Fever, night sweats, weight loss, Lymphadenopathy, ecchymoses, fatigue: Negative DERMATOLOGIC: Rash, New/growing/changing skin lesions: Negative HEENT: Vision change, eye pain, Rhinorrhea, sinus pain, epistaxis, dysphagia, odynophagia, globus sensation, Change in hearing, tinnitus, vertigo, otalgia, Dental problems, oral ulcers or lesions: : Negative ENDOCRINE: Weight change, heat or cold intolerance, tremor, insomnia, neck pain or swelling, Polyuria, polydipsia, polyphagia, Abnormal hair growth, change in nails: Negative CARDIOVASCULAR: Chest pain, Edema, cyanosis, claudication, Orthopnea, paroxysmal nocturnal dyspnea: Negative complains of palpitations PULMONARY: Shortness of breath, dyspnea with exertion, Cough, hemoptysis, wheezing, chest pain : Negative GI: Nausea, vomiting, diarrhea, melena, hematochezia, Change in appetite, abdominal pain, change in bowel habits or stools: Negative : Dysuria, frequency, urgency, Urinary incontinence, hematuria, foamy urine, nocturia, Change in libido, erectile dysfunction, Change in menses, dysmenorrhea, dyspaerunia, pelvic pain: : Negative MUSCULOSKELETAL: Joint swelling or pain, muscle pain, back pain: : Negative NEUROLOGIC: Headache, scotoma, Change in smell or taste, change in facial muscles, Muscle weakness, paresthesias, anesthesia, Ataxia, change in speech: Negative PSYCHIATRIC: Depression, anxiety, hallucinations, mauro, suicidal/homicidal thoughts, Binging, purging: Negative Objective vital signs Vital Sign Date Time Temp Pulse Resp B/P (MAP) Pulse Ox O2 Delivery O2 Flow Rate FiO2 04/01/25 08:44 98.0 93 16 124/89 (101) 96 98.0 04/01/25 08:00 Room Air* 0 21 Total Intake and Output 03/31/25 03/31/25 04/01/25 15:00 23:00 07:00 Intake Total 0 ml Balance 0 ml medications Current Medications Medications Dose Ordered Sig/Abbi Route Start Time Stop Time Status Last Admin Dose Admin Acetaminophen 500 mg Q4HPRN PRN PO 04/01/25 00:15 Acetaminophen/ Hydrocodone Bitart 1 tab Q4HPRN PRN PO 04/01/25 00:15 Magnesium Oxide 400 mg DAILY PO 04/02/25 10:00 Atorvastatin Calcium 20 mg HS PO 04/01/25 22:00 Ergocalciferol 50,000 unit Q7D PO 04/01/25 11:45 04/01/25 13:20 50,000 UNIT Examination General Appearance: Alert, Oriented X3, Cooperative, No acute distress HEENT: Atraumatic, PERRLA, EOMI, Mucous membrane moist/pink Respiratory: Clear to auscultation, Normal air movement Cardiovascular: Regular rate, Normal S1, Normal S2, No murmurs, no chest wall tenderness Abdominal: Normal bowel sounds, Soft, No tenderness, No hepatospenomegaly, No masses Extremities: No clubbing, No cyanosis, No edema, Normal pulses, No tenderness/swelling Skin: No rashes, No breakdown, No significant lesion Neuro: Normal gait, Normal speech, Strength at 5/5 X4 ext, Normal tone, Sensation intact, Cranial nerves 3-12 NL, Reflexes 2+ Psych/Mental Status: Mental status NL, Mood NL laboratory and microbiology Laboratory Tests 04/01/25 04:17 Test 04/01/25 04:17 Range/Units Serum Glucose 99 74-106 mg/dL Problem List/Assessment/Plan Problem List/Assessment/Plan Assessment and plan Palpitations rule out cardiac arrhythmias Rule out structural heart disease Rule out cardiogenic syncope Patient will be admitted to telemetry unit CT head, carotid duplex, orthostatic vitals, telemetry monitoring Transthoracic echocardiogram Cardiology consult Serial troponin levels are negative. BNP 7 Keep K greater than 4, Mag greater than 2 Carotid Doppler showed normal right and left internal carotid artery Normal chest x-ray Prediabetes, newly diagnosed Follow up blood glucose levels Target in-hospital blood glucose below 180 Follow up with PCP on discharge Dyslipidemia Follow up with PCP on discharge Follow lipid levels Consider starting on statins if levels rise Vitamin-D deficiency Vitamin-D 59726 unit 1 tab weekly for 8 weeks GI prophylaxis: Not required DVT prophylaxis: Patient ambulating Code status full code Case discussed with Dr. Tillman Plan discussed with: Patient Date of Service: Apr 01, 2025 Billing Provider: KAT RAND MD Common Visit Codes: [id number] INP/OBS CARE(HIGH) RAUL JOHNS RESIDENT Apr 01, 2025 15:08
[2025-04-01] MEDS: ATORVASTATIN 20 MG TAB PO SCH (22:26)
[2025-04-02] VITALS (7 sets, daily range): BP systolic 122–159; BP diastolic 78–114; PULSE 74–113; RESP 16–18; TEMP 97.6–98.9; O2SAT 94–97
[2025-04-02 07:01] LABS: Hematocrit 46.3 % (41.0-53.0); Hemoglobin 15.5 g/dL (13.5-17.5); Mean Corpuscular Hemoglobin 29.9 pg (28.0-32.0); Mean Corpuscular Volume 89.2 fL (80.0-100.0); Nucleated Red Blood Cells % 0.1 %
[2025-04-02 07:23] LABS: Alanine Aminotransferase 16 U/L (7-40); Albumin 4.7 g/dL (3.2-4.8); Alkaline Phosphatase 70 U/L (46-116); Anion Gap 11 (5-15); BUN/Creatinine Ratio 12.8 (10.0-20.0); Blood Urea Nitrogen 11 mg/dL (9-23); Calcium 9.8 mg/dL (8.7-10.4); Carbon Dioxide 26 mmol/L (20-31); Chloride 104 mmol/L (98-107); Glucose 90 mg/dL (74-106); Potassium 4.7 mmol/L (3.5-5.1); Sodium 141 mmol/L (136-145); Total Protein 7.7 g/dL (5.7-8.2)
[2025-04-02 07:24] LABS: Bilirubin, Total 0.9 mg/dL (0.2-1.0)
[2025-04-02] MEDS: MAGNESIUM OXIDE 400 MG TAB PO SCH (11:07)
--- NOTE | 2025-04-02 16:30 | DVHSR ---
APPROVED REPORT EXAM: Two-dimensional and M-mode echocardiogram with Doppler and color Doppler. Blood Pressure: 122/84 mmHg INDICATION Syncope RISK FACTORS Height: 5'7", Weight: 155 DIMENSIONS LVDd 4.3 (3.8-5.7cm) LA (2D) 3.2 (1.9-4.0cm) Aortic Root 3.4 (2.0-3.7cm) LVDs 3.1 (2.5-4.0cm) LA (MM) (1.9-4.0cm) Aortic Cusp Exc 2.0 (1.5-2.0cm) EF (%) 55.0 (55-70%) Rt. Atrium 3.3 (1.9-4.0cm) Asc. Aorta 3.1 cm IVSd 0.7 (0.7-1.1cm) RV (D) 3.4 (1.8-2.4cm) PWd 0.8 (0.7-1.1cm) Mitral Valve Mitral Mitral Stenosis E wave 0.46m/s MV Mean GR. mmHg A wave 0.64m/s MV Peak GR. mmHg E/A ratio 0.7 2D MVA cm2 DECEL Time 177ms PRESS 1/2 Time ms Aortic Valve Aortic Valve Aortic Stenosis V1 0.95m/s AO Mean GR. 4mmHg V2 1.26m/s AO Peak GR. 6mmHg LVOT Diameter 2.2 (1.8-2.4cm) Doppler DANIEL 2.86cm2 Pulmonic Valve V2 0.94m/s Other Information Quality : Technically Limited Rhythm : Technically limited study due to body habitus. Conclusion Summary: Left ventricle Normal left ventricular size and systolic function. Calculated ejection fraction 55% . Wall thickness is normal. Normal diastolic function. Right ventricular coil Normal right ventricular size and systolic function. Aortic valve: Trileaflet aortic valve. No aortic stenosis. There is trace aortic regurgitation. Pulmonic valve: There is no stenosis. There is trace pulmonic regurgitation. Normal inferior vena cava caliber with 50% inspiratory collapse-estimated right atrial pressure of3 mm Hg.
--- NOTE | 2025-04-02 18:34 | DVHPNRES ---
Progress Note Date Seen: Apr 02, 2025 Resident Creating Document: RAUL JOHNS Medical Necessity Reason Pt with a Central, PICC or Fol: No Subjective Review of Systems Patient seen at bedside. Palpitation subsided. Cardiac event monitor for 2 weeks as outpatient. 35 year old male with past medical history of dyslipidemia presented with complaints of syncopal episode earlier in the morning. Patient reports he was eating breakfast with his mother Tuesday when the syncopal episode happened. patient reports that he has been having the palpitation since Tuesday. He came to the ED, treated with IV fluids and sent home. Later on during the day patient came back to the ED because of increased symptoms. He says that he has had a previous episode of syncope 6 years back. Six months back the patient experienced palpitations for the 1st time. He was seen at [facility] by contact center consultant who diagnosed him with dehydration Advised to drink more fluids. Patient admits to drinking only 1 small cup of water a day. He has multiple family members with heart diseases. PMHx: dyslipidemia PSHx: none Family history: multiple family members with heart disease, supraventricular tachycardia in brother Social history: denies smoking, alcohol or drug use Home medication: no home medications Allergic history: ibuprofen CONSTITUTIONAL: Fever, night sweats, weight loss, Lymphadenopathy, ecchymoses, fatigue: Negative DERMATOLOGIC: Rash, New/growing/changing skin lesions: Negative HEENT: Vision change, eye pain, Rhinorrhea, sinus pain, epistaxis, dysphagia, odynophagia, globus sensation, Change in hearing, tinnitus, vertigo, otalgia, Dental problems, oral ulcers or lesions: : Negative ENDOCRINE: Weight change, heat or cold intolerance, tremor, insomnia, neck pain or swelling, Polyuria, polydipsia, polyphagia, Abnormal hair growth, change in nails: Negative CARDIOVASCULAR: Chest pain, Edema, cyanosis, claudication, Orthopnea, paroxysmal nocturnal dyspnea: Negative complains of palpitations PULMONARY: Shortness of breath, dyspnea with exertion, Cough, hemoptysis, wheezing, chest pain : Negative GI: Nausea, vomiting, diarrhea, melena, hematochezia, Change in appetite, abdominal pain, change in bowel habits or stools: Negative : Dysuria, frequency, urgency, Urinary incontinence, hematuria, foamy urine, nocturia, Change in libido, erectile dysfunction, Change in menses, dysmenorrhea, dyspaerunia, pelvic pain: : Negative MUSCULOSKELETAL: Joint swelling or pain, muscle pain, back pain: : Negative NEUROLOGIC: Headache, scotoma, Change in smell or taste, change in facial muscles, Muscle weakness, paresthesias, anesthesia, Ataxia, change in speech: Negative PSYCHIATRIC: Depression, anxiety, hallucinations, mauro, suicidal/homicidal thoughts, Binging, purging: Negative Objective vital signs Vital Sign Date Time Temp Pulse Resp B/P (MAP) Pulse Ox O2 Delivery O2 Flow Rate FiO2 04/02/25 17:00 98.9 92 16 159/114 (129) 97 98.9 04/02/25 08:00 Room Air* 0 21 Total Intake and Output 04/01/25 04/01/25 04/02/25 15:00 23:00 07:00 Intake Total 2800 ml 300 ml Output Total 2000 ml Balance 800 ml 300 ml medications Current Medications Medications Dose Ordered Sig/Abbi Route Start Time Stop Time Status Last Admin Dose Admin Acetaminophen 500 mg Q4HPRN PRN PO 04/01/25 00:15 Acetaminophen/ Hydrocodone Bitart 1 tab Q4HPRN PRN PO 04/01/25 00:15 Magnesium Oxide 400 mg DAILY PO 04/02/25 10:00 04/02/25 11:07 400 MG Atorvastatin Calcium 20 mg HS PO 04/01/25 22:00 04/01/25 22:26 20 MG Ergocalciferol 50,000 unit Q7D PO 04/01/25 15:15 Examination General Appearance: Alert, Oriented X3, Cooperative, No acute distress HEENT: Atraumatic, PERRLA, EOMI, Mucous membrane moist/pink Respiratory: Clear to auscultation, Normal air movement Cardiovascular: Regular rate, Normal S1, Normal S2, No murmurs, no chest wall tenderness Abdominal: Normal bowel sounds, Soft, No tenderness, No hepatospenomegaly, No masses Extremities: No clubbing, No cyanosis, No edema, Normal pulses, No tenderness/swelling Skin: No rashes, No breakdown, No significant lesion Neuro: Normal gait, Normal speech, Strength at 5/5 X4 ext, Normal tone, Sensation intact, Cranial nerves 3-12 NL, Reflexes 2+ Psych/Mental Status: Mental status NL, Mood NL laboratory and microbiology Laboratory Tests 04/02/25 06:10 Test 04/02/25 06:10 Range/Units Serum Glucose 90 74-106 mg/dL Problem List/Assessment/Plan Problem List/Assessment/Plan Assessment and plan Palpitations rule out cardiac arrhythmias Rule out structural heart disease Rule out cardiogenic syncope Patient will be admitted to telemetry unit CT head, carotid duplex, orthostatic vitals, telemetry monitoring Transthoracic echocardiogram Cardiology consult Serial troponin levels are negative. BNP 7 Keep K greater than 4, Mag greater than 2 Carotid Doppler showed normal right and left internal carotid artery Normal chest x-ray Prediabetes, newly diagnosed Follow up blood glucose levels Target in-hospital blood glucose below 180 Follow up with PCP on discharge Dyslipidemia Follow up with PCP on discharge Follow lipid levels Consider starting on statins if levels rise Vitamin-D deficiency Vitamin-D 23015 unit 1 tab weekly for 8 weeks GI prophylaxis: Not required DVT prophylaxis: Patient ambulating Code status full code Case discussed with Dr. Tillman Plan discussed with: Patient My Orders My Orders Orders - RAUL JOHNS Procedure Category Date Status Time Complete Blood Count LAB 04/03/25 Verified 04:00 Comprehensive LAB 04/03/25 Verified Metabolic Panel 04:00 Date of Service: Apr 02, 2025 Billing Provider: KAT RAND MD Common Visit Codes: [id number] INP/OBS CARE(HIGH) RAUL JOHNS Apr 02, 2025 18:34
[2025-04-02] MEDS: ACETAMINOPHEN 500 MG TAB or CAP PO PRN (21:51)
[2025-04-03 01:00] VITALS: BP 127/93; PULSE 77; RESP 16; TEMP 98.1; O2SAT 95
[2025-04-03 04:59] VITALS: BP 122/86; PULSE 73; RESP 16; TEMP 97.9; O2SAT 97
[2025-04-03 06:27] LABS: Hematocrit 46.7 % (41.0-53.0); Hemoglobin 15.8 g/dL (13.5-17.5); Mean Corpuscular Hemoglobin 30.1 pg (28.0-32.0); Mean Corpuscular Volume 88.9 fL (80.0-100.0); Nucleated Red Blood Cells % 0.0 %
[2025-04-03 06:44] LABS: Alanine Aminotransferase 18 U/L (7-40); Alkaline Phosphatase 69 U/L (46-116); Anion Gap 12 (5-15); BUN/Creatinine Ratio 13.6 (10.0-20.0); Blood Urea Nitrogen 11 mg/dL (9-23); Calcium 9.9 mg/dL (8.7-10.4); Carbon Dioxide 28 mmol/L (20-31); Chloride 101 mmol/L (98-107); Glucose 97 mg/dL (74-106); Potassium 4.7 mmol/L (3.5-5.1); Sodium 141 mmol/L (136-145); Total Protein 7.7 g/dL (5.7-8.2)
[2025-04-03 06:45] LABS: Albumin 4.8 g/dL (3.2-4.8); Bilirubin, Total 1.0 mg/dL (0.2-1.0)
[2025-04-03 08:00] VITALS: PULSE 111; O2SAT 96
[2025-04-03 08:49] VITALS: BP 127/90; PULSE 90; RESP 17; TEMP 97; O2SAT 98
[2025-04-03 11:44] VITALS: TEMP 36.1
[2025-04-03 12:42] VITALS: BP 141/101; PULSE 105; RESP 19; TEMP 98; O2SAT 96
--- NOTE | 2025-04-03 15:49 | DVHDSRES ---
Discharge Summary Date of Admission Resident Creating Document: ARUL JOHNS RESIDENT Mar 31, 2025 at 23:54 Date of Discharge: Apr 03, 2025 Labs/Diagnostic Data: Laboratory Results Test 04/03/25 05:40 04/01/25 04:17 04/01/25 00:35 03/31/25 22:40 White Blood Count 7.7 10^3/uL (4.4-10.8) Red Blood Count 5.25 10^6/uL (4.5-5.90) Hemoglobin 15.8 g/dL (13.5-17.5) Hematocrit 46.7 % (41.0-53.0) Mean Corpuscular Volume 88.9 fL (80.0-100.0) Mean Corpuscular Hemoglobin 30.1 pg (28.0-32.0) Mean Corpuscular Hemoglobin Concent 33.8 g/dL (32.0-36.0) Red Cell Distribution Width 13.0 % (11.8-14.3) Platelet Count 357 10^3/uL (140-450) Mean Platelet Volume 7.6 fL (6.9-10.8) Neutrophils (%) (Auto) 52.1 % (37.0-80.0) Lymphocytes (%) (Auto) 37.0 % (10.0-50.0) Monocytes (%) (Auto) 9.7 % (0.0-12.0) Eosinophils (%) (Auto) 0.9 % (0.0-7.0) Basophils (%) (Auto) 0.3 % (0.0-2.0) Neutrophils # (Auto) 4.0 10 ^3/uL (1.6-8.6) Lymphocytes # (Auto) 2.9 10 ^3/uL (0.4-5.4) Monocytes # (Auto) 0.7 10 ^3/uL (0-1.3) Eosinophils # (Auto) 0.1 10 ^3/uL (0-0.8) Basophils # (Auto) 0 10 ^3/uL (0-0.2) Nucleated Red Blood Cells 0.0 % Sodium Level 141 mmol/L (136-145) Potassium Level 4.7 mmol/L (3.5-5.1) Chloride Level 101 mmol/L (98-107) Carbon Dioxide Level 28 mmol/L (20-31) Anion Gap 12 (5-15) Blood Urea Nitrogen 11 mg/dL (9-23) Creatinine 0.81 mg/dL (0.700-1.30) Glomerular Filtration Rate Calc 116 mL/min (>90) BUN/Creatinine Ratio 13.6 (10.0-20.0) Serum Glucose 97 mg/dL (74-106) Calcium Level 9.9 mg/dL (8.7-10.4) Total Bilirubin 1.0 mg/dL (0.2-1.0) Aspartate Amino Transferase (AST) 16 U/L (13-40) Alanine Aminotransferase (ALT) 18 U/L (7-40) Alkaline Phosphatase 69 U/L (46-116) Total Protein 7.7 g/dL (5.7-8.2) Albumin 4.8 g/dL (3.2-4.8) Prothrombin Time 10.9 sec (9.3-11.8) Prothrombin Time INR 1.03 (0.9-1.15) Activated Partial Thromboplast Time 28.1 SEC (24.5-34.5) Magnesium Level 2.5 mg/dL (1.6-2.6) Triglycerides Level 180 mg/dL (< 150) Cholesterol Level 227 mg/dL (< 200) LDL Cholesterol 142 mg/dL (< 100) HDL Cholesterol 51 mg/dL (40-59) Influenza Type A Antigen Negative (Negative) Influenza Type B Antigen Negative (Negative) SARS-CoV-2 Antigen (Rapid) Negative (NEGATIVE) Urine Color Light-yellow (Yellow) Urine Clarity Clear (Clear) Urine pH 5.5 (5.0-9.0) Urine Specific Jennings 1.016 (1.001-1.035) Urine Protein Negative (Negative) Urine Ketones Negative (Negative) Urine Blood Negative /uL (Negative) Urine Nitrite Negative (Negative) Urine Bilirubin Negative (Negative) Urine Urobilinogen Normal mg/dL (Negative) Urine Leukocyte Esterase Negative /uL (Negative) Urine RBC 1 /hpf (0 - 3) Urine Microscopic WBC 5 /HPF (0-3) Urine Squamous Epithelial Cells None seen /hpf (<5) Urine Bacteria None seen /hpf (None Seen) Urine Mucus Few (None Seen) Urine Glucose Normal mg/dL (Normal) Urine Opiates Screen Neg (NEGATIVE) Urine Fentanyl Screen Neg (NEGATIVE) Urine Barbiturates Screen Neg (NEGATIVE) Urine Phencyclidine Screen Neg (NEGATIVE) Urine Amphetamines Screen Neg (NEGATIVE) Urine Benzodiazepines Screen Neg (NEGATIVE) Urine Cocaine Screen Neg (NEGATIVE) Urine Cannabinoids Screen Neg (NEGATIVE) Test 03/31/25 22:19 03/31/25 21:12 Troponin I High Sensitivity < 3 ng/L (</=54) Hemoglobin A1c 5.6 % A1C (<5.7) B-Type Natriuretic Peptide 7.31 pg/mL (0-100) Vitamin B12 Level 379 pg/mL (211-911) Vitamin D 25-Hydroxy 14.0 ng/mL (30.0-100) Thyroid Stimulating Hormone (TSH) 2.85 uIU/mL (0.55-4.78) Thyroxine (T4) 7.6 ug/dL (4.5-12.0) Other Laboratory Tests 04/03/25 05:40 Brief Hx & Hospital Course: 35 year old male with past medical history of dyslipidemia presented with complaints of syncopal episode earlier in the morning. Patient reported he was eating breakfast with his mother on tuesday morning when the syncopal episode happened. patient reported that he has been having the palpitation since Tuesday. He came to the ED, treated with IV fluids and sent home. Later on during the day patient came back to the ED because of increased symptoms. He says that he has had a previous episode of syncope 6 years back. Six months back the patient experienced palpitations for the 1st time. He was seen at [facility] by tube winder who diagnosed him with dehydration. Advised to drink more fluids. Patient admits to drinking only 1 small cup of water a day. He has multiple family members with heart diseases.12 lead electrocardiograms x4 revealed a sinus rhythm without ST-T wave segment changes and PAC, PVCs.Serial troponin levels were negative. BNP was 7. Magnesium and vitamin-D was replenished. Transthoracic echocardiogram revealed normal left ventricular size and systolic function with ejection fraction of 55%, normal wall thickness and diastolic function. There was trace aortic regurgitation and pulmonic regurgitation. magnesium was replaced. During the course of the hospitalization, there was no further syncopal episodes or palpitations. Patient was discharged and advised to follow up with Cardiology as outpatient for even monitor for at least 2 weeks to rule out tachyarrhythmia and assess the burden of PACs and PVCs. Discharge plan Follow up with PCP in 7 days Follow up with Cardiology in 7 days for outpatient even monitor for at least 2 weeks Condition at Discharge: Fair Final Diagnosis/Problems List Still to rule out cardiac arrhythmias Still to rule out cardiogenic syncope Ruled out structural heart disease Prediabetes, newly diagnosed Vitamin-D deficiency Dyslipidemia Discharge Disposition: Home Discharge Instruct/Medications Diet: Regular Activity: No Restrictions, As Tolerated Follow Up/Referral: F/u with PCP in 7 days F/u with cardiology for outpatient event monitor for atleast 2 weeks Medications: as per EHR Scheduled Cetirizine Hcl (Cetirizine Hcl), 10 MG PO DAILY Discharge Statement: "Patient was advised to return to the ER or call 911 if any headaches, dizziness, shortness of breath, chest pain, abdominal pain, bleeding, fevers, or worsening of medical condition. Patient was counseled about treatment plan, medications, possible side effects, patientverbalized understanding. All questions were answered to the best of my ability. This discharge took greater then 30 minutes in planning, reviewing documentation, counseling the patient, and discussing with other team members." ASSESSMENT ASSESSMENT Assessment to rule out cardiogenic syncope Symptomatic sinus tachycardia with syncope workup Visit Coding STANDARD RES Billing Provider: KAT RAND MD Date of Service if different f: Apr 03, 2025 Common Visit Codes: 94201-FFV/OBS DISCH DAY >30min RAUL JOHNS Apr 03, 2025 15:49
== END 2025-04-03 12:29 | disposition home or self-care (01) | DRG 310 ==
LOC: EDBD 20:07 → ER 20:07 → OVERFLOW 23:54 → TELE-WESTW 04-01 20:54
PROVIDERS: ADMIT Student in an Organized Health Care Education/Training Program; ATTEND Student in an Organized Health Care Education/Training Program
DX: I49.9 Cardiac arrhythmia, unspecified (principal); E55.9 Vitamin D deficiency, unspecified; R55 Syncope and collapse; E78.5 Hyperlipidemia, unspecified; I48.0 Paroxysmal atrial fibrillation; R73.03 Prediabetes; Z20.822 Contact with and (suspected) exposure to COVID-19; R00.2 Palpitations; Z88.6 Allergy status to analgesic agent; Z82.49 Family history of ischemic heart disease and other diseases of the circulatory system
CPT/HCPCS: 36415; 70450; 71045; 80048; 80053; 80061; 80307; 81001; 82306; 82607; 83036; 83735; 83880; 84436; 84443; 84484; 85025; 85610; 85730; 87426; 87804; 93005; 93306; 93886; G0378